=== PATIENT | male | born 1960 | race Caucasian/White ===

== ENCOUNTER 2022-09-15 09:38 | Outpatient (CLI) | payer OTHER, SELFPAY ==
[2022-09-15 10:18] LABS: Hemoglobin 12.4 g/dL (14.0-18.0); Mean Corpuscular HGB Conc 33.5 g/dl (32-36); Mean Corpuscular Volume 95.4 fl (80-100); Mean Platelet Volume 10.5 fl (7.4-10.4); Platelet Count Result 143 k/mm3 (150-375); Red Blood Count 3.88 M/mm3 (4.6-6.20); Red Cell Distribution Width 14.8 % (11.5-14.5); White Blood Count 6.2 K/mm3 (4.5-10.0)
[2022-09-15 10:35] LABS: Iron 67 ug/dL (49-181)
[2022-09-15 10:41] LABS: Alanine Aminotransferase 31 U/L (6-50); Albumin Level 3.8 g/dL (3.5-5.1); Alkaline Phosphatase 74 U/L (38-126); Anion Gap 4 mmol/L (8-16); Aspartate Amino Transferase 56 U/L (17-59); Bilirubin,Total 0.9 mg/dL (0.2-1.3); Blood Urea Nitrogen 23 mg/dL (9-20); Calcium 8.4 mg/dL (8.4-10.2); Carbon Dioxide 30 mmol/L (22-30); Chloride 98 mmol/L (98-107); Estimated Glomerular Filt Rate > 60; Glucose 81 mg/dL (65-110); Sodium 132 mmol/L (137-145)
[2022-09-15 10:46] LABS: Percent Iron Saturation 20 % (20-50)
[2022-09-15 11:08] LABS: Hepatitis B Surface Antigen Negative (Negative)
[2022-09-15 11:14] LABS: HAV RESULT Negative (Negative); Hepatitis B Core IgM Result Negative (Negative)
[2022-09-15 11:26] LABS: Hepatitis C Virus Antibody Negative (Negative)
[2022-09-19 07:01] LABS: Ceruloplasmin 26 mg/dL (18-36)
[2022-09-20 11:39] LABS: Mitochondrial (M2) Ab (IgG) <=20.0 U (<=20.0)
[2022-09-24 16:01] LABS: ALT 17 U/L (9-46); Alpha-2-Macroglobulin 121 mg/dL (106-279); Apolipoprotein A1 164 mg/dL (94-176); Fibrosis Score 0.07; Fibrosis Stage F0; GGT 7 U/L (3-70); Haptoglobin 124 mg/dL (43-212); Necroinflammat Act Grade A0; Total Bilirubin 0.6 mg/dL (0.2-1.2)
== END 2022-09-15 09:39 | disposition home or self-care (01) ==
LOC: ANHLAB 09:41
PROVIDERS: Visit Provider Internal Medicine Gastroenterology
DX: R74.8 Abnormal levels of other serum enzymes (principal); K74.60 Unspecified cirrhosis of liver; R18.8 Other ascites
CPT/HCPCS: 36415; 80053; 80074; 81596; 82104; 82390; 82728; 83520; 83540; 83550; 85027; 86038

== ENCOUNTER 2022-10-10 02:41 | Day surgery (SDC) | payer OTHER, SELFPAY ==
[2022-09-30 09:34] VITALS: BMI 20.3
--- NOTE | 2022-10-07 17:57 | WPDANESEPP ---
Anes - Eval Pre Procedure Procedure: Operation Date: 10/10/22 10:45 Proposed Procedures p Esophagogastroduodenoscopy & Screening Colonoscopy - Richard Gregory MD Date/Time: 10/07/22 17:57 Pre Op Diagnosis: cirrhosis,unspecified, neoplasm screening Patient Data Age: 62 Gender: M Height: 1.83 m Weight: 68 kg Allergies Allergy/AdvReac Type Severity Reaction Status Date / Time bacitracin Allergy Rash Verified 09/30/22 09:31 [From Neosporin ([id number])] neomycin Allergy Rash Verified 09/30/22 09:31 [From Neosporin ([id number])] polymyxin B Allergy Rash Verified 09/30/22 09:31 [From Neosporin ([id number])] Home Medications Medication Instructions Recorded Confirmed Type amlodipine 5 mg tablet 5 mg PO DAILY 09/15/22 09/30/22 History aspirin 81 mg tablet,delayed 81 mg PO DAILY 09/15/22 09/30/22 History release folic acid 1 mg tablet 1 mg PO DAILY 09/15/22 09/30/22 History furosemide 40 mg tablet 40 mg PO QAM 09/15/22 09/30/22 History levothyroxine 125 mcg capsule 125 mcg PO DAILY 09/15/22 09/30/22 History omeprazole 20 mg capsule,delayed 20 mg PO DAILY 09/15/22 09/30/22 History release spironolactone 100 mg tablet 100 mg PO QAM #30 tabs 09/15/22 09/30/22 Rx (Aldactone) Patient hx anesthesia problems: none Family hx anesthesia problems: none Results Review: All pre-operative results and documents have been reviewed as part of the pre-operative evaluation. [facility] Past Medical History Medical History (Updated 10/07/22 @ 17:58 by Gaby Lopez CRNA) Ascites Cirrhosis Colon cancer screening GERD (gastroesophageal reflux disease) High blood pressure History of throat cancer Hypothyroidism (acquired) Surgical History Surgical History (Updated 10/07/22 @ 17:58 by Gaby Lopez CRNA) History of radical neck surgery Social History Social History (Updated 09/15/22 @ 08:48 by Ernestina Simons CMA) Years smoked: 40 Smoking status: Former smoker Alcohol intake: former Alcohol use details: 2 cans of beer/day for 40 years. Quit drinking 08/2022 Substance use: never Spiritual care concerns: No Exam Day of Procedure 10/07/22 17:57
[2022-10-10 09:00] VITALS: BP 124/86; PULSE 67; RESP 18; TEMP 36.2; O2SAT 100; BMI 21.3
[2022-10-10] MEDS: LACTATED RINGERS 1,000 ML 150 ML IV CONT (09:37)
--- NOTE | 2022-10-10 10:00 | P.PNAN_ITS ---
Anes - Eval Final PreProcedure Day of Procedure 10/10/22 10:00 Patient weight: normal Heart: regular rate and rhythm Lungs: decreased breath sounds Airway: Mallampati scale class II Neurological: alert and oriented Last oral intake: >/= 8 hours ASA classification: IV Emergent: no Anesthetic plan: proceed Anesthesia type and monitoring: general GIVS and standard monitoring Results Review: All pre-operative results and documents have been reviewed as part of the pre- operative evaluation. Informed Consent: The patient's anesthetic plan and its attendant risks and benefits were discussed with the patient/family/POA. Questions were solicited and answers provided to the satisfaction of the patient/family/POA.
--- NOTE | 2022-10-10 10:19 | WPDHPUPDATE1 ---
History and Physical Update Update Date/Time: 10/10/22 10:19 History and Physical has been reviewed, including an updated exam of the patient. There are NO changes in the patient's condition. Risks, benefits, and alternatives have been discussed and questions answered. Patient agrees to proceed with procedure.
[2022-10-10 10:53] VITALS: BP 90/61; PULSE 67; RESP 15; O2SAT 100
--- NOTE | 2022-10-10 10:53 | SUR.OPER ---
EGD started at 1029 and ended at 1031. Colonoscopy started at 1037 and ended at 1046.
[2022-10-10 11:03] VITALS: BP 109/76; PULSE 64; RESP 17; O2SAT 100
[2022-10-10 11:13] VITALS: BP 119/81; PULSE 67; RESP 24; O2SAT 100
== END 2022-10-10 11:26 | disposition home or self-care (01) ==
PROVIDERS: Visit Provider Internal Medicine Gastroenterology
PROC: 0DJ08ZZ Inspection of Upper Intestinal Tract, Via Natural or Artificial Opening Endoscopic (ICD-10-PCS; CPT 43235; principal; 2022-10-10 10:45)
DX: Z12.11 Encounter for screening for malignant neoplasm of colon (principal); D12.3 Benign neoplasm of transverse colon; K64.8 Other hemorrhoids; K57.30 Diverticulosis of large intestine without perforation or abscess without bleeding; K29.70 Gastritis, unspecified, without bleeding; K74.60 Unspecified cirrhosis of liver; K21.9 Gastro-esophageal reflux disease without esophagitis; I10 Essential (primary) hypertension; E03.9 Hypothyroidism, unspecified; Z79.82 Long term (current) use of aspirin; Z87.891 Personal history of nicotine dependence; Z85.819 Personal history of malignant neoplasm of unspecified site of lip, oral cavity, and pharynx
CPT/HCPCS: 45385; 43239; 88305; J2704; J7120

== ENCOUNTER 2023-03-24 10:02 | Outpatient (CLI) | payer OTHER, SELFPAY ==
--- NOTE | ~2023-03-24 | US_ITS ---
Limited Abdominal Sonogram: Real-time sonographic imaging of the right upper quadrant was performed. Clinical History: Ascites Findings: The liver appears normal with no evidence of mass lesion or bile duct dilatation. Main por neil vein demonstrates normal direction of flow. The gallbladder is well distended, and appears normal with no evidence of gallstone or wall thickening. The common bile duct measures 2 mm. The visualize d pancreas, aorta, and IVC are unremarkable. Impression: No significant abnormality seen. No ascites. Reviewed, dictated and finalized at location . S OFFICE MANAGER Impression: No significant abnormality seen. No ascites.
== END 2023-03-24 10:03 | disposition home or self-care (01) ==
LOC: ANHIMG 10:04
PROVIDERS: Visit Provider Internal Medicine Gastroenterology
DX: R18.8 Other ascites (principal); K74.60 Unspecified cirrhosis of liver; K76.6 Portal hypertension
CPT/HCPCS: 76705

== ENCOUNTER 2023-05-29 10:30 | Outpatient (CLI) | payer MEDICARE, OTHER, SELFPAY ==
[2023-05-29 11:02] LABS: Hematocrit 34.1 % (42.0-52.0); Hemoglobin 11.4 g/dL (14.0-18.0); Immature Platelet Fraction Pct 7.6 % (0.9-11.2); Mean Corpuscular HGB Conc 33.4 g/dl (32-36); Mean Corpuscular Hemoglobin 30.9 pg (26-34); Mean Corpuscular Volume 92.4 fl (80-100); Mean Platelet Volume 10.7 fl (7.4-10.4); Platelet Count Result 131 k/mm3 (150-375); Red Blood Count 3.69 M/mm3 (4.6-6.20); Red Cell Distribution Width 13.7 % (11.5-14.5); White Blood Count 6.6 K/mm3 (4.5-10.0)
[2023-05-29 11:08] LABS: Alanine Aminotransferase 16 U/L (6-50); Albumin Level 4.4 g/dL (3.5-5.1); Alkaline Phosphatase 73 U/L (38-126); Anion Gap 6 mmol/L (8-16); Aspartate Amino Transferase 33 U/L (17-59); Bilirubin,Total 1.4 mg/dL (0.2-1.3); Blood Urea Nitrogen 21 mg/dL (9-20); Calcium 9.2 mg/dL (8.4-10.2); Carbon Dioxide 29 mmol/L (22-30); Chloride 97 mmol/L (98-107); Estimated Glomerular Filt Rate > 60; Glucose 98 mg/dL (65-110); Potassium 4.4 mmol/L (3.4-5.0); Sodium 132 mmol/L (137-145)
[2023-05-29 11:19] LABS: Prothrombin Time 13.4 Seconds (11.1-14.7)
== END 2023-05-29 10:31 | disposition home or self-care (01) ==
PROVIDERS: Visit Provider Internal Medicine Gastroenterology
DX: R18.8 Other ascites (principal); K74.60 Unspecified cirrhosis of liver; K76.6 Portal hypertension
CPT/HCPCS: 36415; 80053; 85027; 85055; 85610

== ENCOUNTER 2023-11-15 09:22 | Outpatient (CLI) | payer MEDICARE, OTHER, SELFPAY ==
[2023-11-15 09:54] LABS: Hematocrit 34.7 % (42.0-52.0); Hemoglobin 11.8 g/dL (14.0-18.0); Immature Platelet Fraction Pct 6.5 % (0.9-11.2); Mean Corpuscular Hemoglobin 31.7 pg (26-34); Mean Corpuscular Volume 93.3 fl (80-100); Mean Platelet Volume 10.4 fl (7.4-10.4); Platelet Count Result 146 k/mm3 (150-375); Red Blood Count 3.72 M/mm3 (4.6-6.20); Red Cell Distribution Width 14.2 % (11.5-14.5); White Blood Count 5.8 K/mm3 (4.5-10.0)
[2023-11-15 10:03] LABS: Alanine Aminotransferase 18 U/L (6-50); Albumin Level 4.6 g/dL (3.5-5.1); Alkaline Phosphatase 65 U/L (38-126); Anion Gap 9 mmol/L (4-12); Aspartate Amino Transferase 36 U/L (17-59); Blood Urea Nitrogen 25 mg/dL (9-20); Calcium 9.3 mg/dL (8.4-10.2); Carbon Dioxide 32 mmol/L (22-30); Chloride 88 mmol/L (98-107); Estimated Glomerular Filt Rate > 60; Glucose 85 mg/dL (65-110); Potassium 4.7 mmol/L (3.4-5.0); Sodium 129 mmol/L (137-145)
[2023-11-15 10:04] LABS: INR 0.9; Prothrombin Time 13.1 Seconds (11.1-14.7)
== END 2023-11-15 09:23 | disposition home or self-care (01) ==
PROVIDERS: PCP Nurse Practitioner Family; Visit Provider Internal Medicine Gastroenterology
DX: K74.60 Unspecified cirrhosis of liver (principal); R18.8 Other ascites; Z85.819 Personal history of malignant neoplasm of unspecified site of lip, oral cavity, and pharynx
CPT/HCPCS: 36415; 80053; 85027; 85055; 85610

== ENCOUNTER 2023-11-28 07:21 | Outpatient (CLI) | payer MEDICARE, OTHER, SELFPAY ==
--- NOTE | ~2023-11-28 | US_ITS ---
EXAMINATION: US right upper quadrant DATE: 11/28/2023 08:14 INDICATION: Other ascites. TECHNIQUE: Multiple grayscale and Doppler ultrasound images of the abdomen were obtained. COMPARISON: Abdomen ultrasound 03/24/2023 FINDINGS: The visualized portions of the head and body of the pancreas are normal. The liver is marianna l without focal lesion. There is normal flow in main portal vein. The gallbladder is normal in size. No gallstones or gallbladder wall thickening. There is no sonographic Yi's sign. The common duct is normal and measures 2 mm. There is a small volume of ascites. IMPRESSION: 1. Small volume of ascites. Reviewed, dictated and finalized at location A. IMPRESSION: 1. Small volume of ascites.
== END 2023-11-28 07:22 | disposition home or self-care (01) ==
PROVIDERS: PCP Nurse Practitioner Family; Visit Provider Internal Medicine Gastroenterology
DX: R18.8 Other ascites (principal); K74.60 Unspecified cirrhosis of liver
CPT/HCPCS: 76705

== ENCOUNTER 2023-12-26 13:52 | Outpatient (CLI) | payer MEDICARE, OTHER, SELFPAY ==
--- NOTE | ~2023-12-26 | XR_ITS ---
EXAMINATION: XR chest 2V DATE: 12/26/2023 15:51 INDICATION: Unilateral inguinal hernia without obstruction. TECHNIQUE: Frontal and lateral views of the chest were obtained. COMPARISON: None. FINDINGS: There is mild scarring at the lung apices. There is mild atelectasis at the lung bases. No pleural effusion or pneumothorax. The heart size is normal. IMPRESSION: 1. Mild scarring at the lung apices and mild atelectasis at the lung bases. Reviewed, dictated and finalized at location A.
--- NOTE | 2023-12-26 14:45 | ECG_ITS ---
Test Date: 2023-12-26 14:49:05 Measurements Intervals [place] Rate: 61 P: 45 [place]: 139 QRS: 3 QRSD: 106 T: 12 QT: 421 QTc: 425 Interpretive Statements SINUS RHYTHM EARLY PRECORDIAL R-WAVE TRANSITION BORDERLINE ECG No previous ECG available for comparison Electronically Signed On 12-27-2023 07:09:08 CDT by Aj Sanchez M.D.
[2023-12-26 15:18] LABS: Basophils Percent Auto 0.6 % (0.2-1.2); Eosinophils Percent Auto 0.6 % (0-4.4); Hematocrit 34.5 % (42.0-52.0); Hemoglobin 11.8 g/dL (14.0-18.0); Immature Granulocyte Absolute 0.03 K/mm3 (0.00-0.031); Immature Granulocyte Percent A 0.6 % (0-0.5); Immature Platelet Fraction Pct 6.2 % (0.9-11.2); Lymphocytes Absolute Auto 0.56 K/mm3 (0.9-3.2); Lymphocytes Percent Auto 10.9 % (18.3-44.2); Mean Corpuscular HGB Conc 34.2 g/dl (32-36); Mean Corpuscular Hemoglobin 31.8 pg (26-34); Mean Platelet Volume 10.7 fl (7.4-10.4); Monocytes Absolute Auto 0.4 K/mm3 (0.1-0.6); Monocytes Percent Auto 7.2 % (2.6-8.5); Neutrophils Absolute Auto 4.1 K/mm3 (1.3-6.7); Neutrophils Percent Auto 80.1 % (45.5-73.1); Platelet Count Result 139 k/mm3 (150-375); Red Blood Count 3.71 M/mm3 (4.6-6.20); Red Cell Distribution Width 13.9 % (11.5-14.5); White Blood Count 5.1 K/mm3 (4.5-10.0)
[2023-12-26 15:27] LABS: Prothrombin Time 13.3 Seconds (11.1-14.7)
[2023-12-26 15:28] LABS: Partial Thromboplastin Time 30.2 Seconds (22.3-36.8)
[2023-12-26 15:30] LABS: Anion Gap 7 mmol/L (4-12); Blood Urea Nitrogen 27 mg/dL (9-20); Carbon Dioxide 31 mmol/L (22-30); Chloride 91 mmol/L (98-107); Estimated Glomerular Filt Rate > 60; Glucose 94 mg/dL (65-110); Potassium 4.1 mmol/L (3.4-5.0); Sodium 129 mmol/L (137-145)
== END 2023-12-26 13:53 | disposition home or self-care (01) ==
LOC: ANHSURGERY 14:01
PROVIDERS: PCP Nurse Practitioner Family; Visit Provider Surgery
DX: K40.90 Unilateral inguinal hernia, without obstruction or gangrene, not specified as recurrent (principal); D69.6 Thrombocytopenia, unspecified; R94.31 Abnormal electrocardiogram [ECG] [EKG]; R91.8 Other nonspecific abnormal finding of lung field
CPT/HCPCS: 36415; 71046; 80048; 85025; 85055; 85610; 85730; 93005

== ENCOUNTER 2024-02-07 02:07 | Day surgery (SDC) | payer MEDICARE, OTHER, SELFPAY ==
[2023-12-26 15:12] VITALS: RESP 16; BMI 20.5
--- NOTE | 2023-12-26 15:30 | PC.NURSE ---
Report to the Outpatient Waiting Room, entrance under the green pavilion located off [facility], at time _07:30am__ on date _02/07/24 . Planned Procedure Time: ___09:30am . Time changes happen often and if your time is changed the preop area will call you the afternoon before. - You and your visitor will be asked to self-screen and do not enter if you have any COVID symptoms. Please call surgeon if you need to reschedule. - A mask is optional within the hospital at this time. Patients may have clear liquids (water, carbonated beverages, clear teas, apple juice) until 3 hours prior to surgery with a maximum of 20 ounces. - No food from midnight until time of surgery and no smoking (06:30am) Take only the following medications with a SIP of water on the morning of surgery: __Amlodipine and Levothyroxine DO NOT STOP ANY OF YOUR OTHER PRESCRIPTION MEDICATIONS PRIOR TO SURGERY EXCEPT THE FOLLOWING Medications to discontinue per physician ___Hold vitamins for 3 days prior to surgery per Anesthesia ____ Date to take last dose___02/03/24 Please no make-up, nail [place], hairspray, perfume, deodorant, or body powder the day of surgery.? No jewelry (including any body piercings) or valuables the day of surgery, leave them at home.? Please take a shower or bath the night before, or the morning of, surgery with an antibacterial soap.? Wear comfortable, loose fitting clothing.? - Jewelry must be removed prior to entering the operating room.? Rings and piercings that are not removed may be cut off. - The hospital will not accept responsibility for valuables.? - Please leave all valuables, including medications, at home the day of surgery. If you are going home after surgery, a licensed driver guard must drive you home.? - NO public transportation without another adult if you receive anesthesia. - We recommend that an adult stay with you for 24 hours following discharge. - We also recommend that you do not drive, make important decision, drink alcoholic beverages, or take any drugs that were not prescribed by your health care provider for at least 24 hours after your discharge time. Follow any additional instructions given to you from your surgeon. Telephone instructions given to ___patient ____and asked if any additional questions and then verbalized understanding. Patient advised to call surgeon office or pre surgery nurse liaison [phone] if any additional questions.
[2024-02-07] VITALS (9 sets, daily range): BP systolic 109–160; BP diastolic 74–86; PULSE 60–97; RESP 14–20; TEMP 36.2; O2SAT 98–100
[2024-02-07] MEDS: ACETAMINOPHEN 500 MG TABLET 1000 MG PO (08:08)
[2024-02-07] MEDS: LACTATED RINGERS 1,000 ML 30 ML IV CONT ×2 (08:10→12:09)
[2024-02-07] MEDS: KETOROLAC 15 MG/ML VIAL (*BKC) IV PUSH (08:12)
--- NOTE | 2024-02-07 08:20 | PM.SD2 ---
Same Day Admit/Disch: HPI History of Present Illness Chief complaint: Left Ing Hernia Narrative: Ranulfo Arboleda is a 63 year old male who was known to have cirrhosis, ascites, and portal hypertension. He presented with a symptomatic reducible left inguinal hernia. After discussion, he is taken to surgery now for robotic laparoscopic repair. [facility] Past Medical History Medical History Adenomatous colon polyp Ascites Cirrhosis Colon cancer screening GERD (gastroesophageal reflux disease) High blood pressure History of throat cancer Hypothyroidism (acquired) Left inguinal hernia Portal hypertension Thrombocytopenia Surgical History Surgical History History of radical neck surgery Hx of right inguinal hernia repair Family History Family History Other Cerebrovascular accident Skin cancer Social History Social History Smoking packs per day: 1 Smoking cigarettes per day: 20.0 Years smoked: 40 Smoking pack-years: 40.00 Smoking status: Former smoker Smoking end date: 03/20/01 Alcohol intake: former Alcohol use details: 2 cans of beer/day for 40 years. Quit drinking 08/2022 Substance use: never Do You Feel Safe in your Home?: Yes Lack of Transportation: No Lack of Food: Never True Current Housing: I Have Housing Concerned About Future Housing: No Difficulty Paying Gas/Electric Bills: No Difficulty Paying for Meds: No Currently Unemployed: No Education: Bachelor's Degree Difficulty w/ Childcare or Family Care: No Living arrangements: alone Spiritual care concerns: No Same Day Admit/Disch: Med Pre-admit Medications Home Medications Medication Instructions Recorded Confirmed Type folic acid 1 mg tablet 1 mg PO DAILY 09/15/22 02/07/24 History levothyroxine 125 mcg capsule 125 mcg PO DAILY 09/15/22 02/07/24 History omeprazole 20 mg capsule,delayed 40 mg PO DAILY #60 caps 11/30/23 02/07/24 Rx release spironolactone 100 mg tablet 150 mg PO QAM 1 month #45 tabs 11/30/23 02/07/24 Rx (Aldactone) ibuprofen 600 mg tablet 600 mg PO Q6H PRN pain #14 tabs 02/07/24 Rx oxycodone-acetaminophen 5 mg-325 0.5 - 1 tablet PO Q6H PRN pain #10 02/07/24 Rx mg tablet tabs Review of Systems Review of Systems All systems reviewed & are unremarkable except as noted in HPI and below (HPI) Exam Const: General: comfortable, no acute distress, alert and awake HENMT: Head: normocephalic and atraumatic Mouth: Yes Normal oral and palatal mucosa present Eyes: Conjunctivae: conjunctivae normal Pupils: Equal, round and reactive pupils present EOM: EOMs intact bilaterally Neck: Neck: normal visual inspection, no lymphadenopathy and nontender Resp: Effort & Inspection: normal respiratory effort Auscultation: clear to auscultation bilaterally Cardio: Rate: regular rate Rhythm: regular rhythm Heart sounds: no gallops, no murmurs and no rubs GI: Inspection: non-distended GI Palp: Yes Soft to palpation, No Tenderness to palpation present (GI), No Hepatomegaly present and No Splenomegaly present : Male General Exam: Yes hernia (Reducible left inguinal hernia) Penis: Yes normal penis Scrotum: scrotum normal Testes: Testes normal Skin: Lesions: no lesions Rashes: no rashes Neuro: General: no focal motor deficits and CN's II-XI intact bilaterally Cranial nerves: Yes Equal, round and reactive pupils present, Yes Bilaterally intact EOM present, Yes facial symmetry and Yes Midline tongue present Speech: normal speech Motor exam (neuro): 5/5 motor strength present throughout and Motor abnormalities not present Extrem: General: no clubbing, cyanosis or edema and edema Psych: Affect: normal affect Thought process: Normal thought process present Insight: Good insight present (Psych) DS: Data Data Completed and Pending Labs on day of discharge: Labs from last 24 hours 02/07/24 07:59 Sodium Pending DS: Summary Time Spent with Patient Time attestation: Total time spent providing and/or coordinating discharge services: DS: Admitting Diagnosis Discharge Date 02/07/2024 Admitting Diagnosis Reducible left inguinal hernia-plan to proceed with robotic laparoscopic repair with mesh. The procedure, risks, benefits, alternatives have been discussed. All questions were answered. He understands and agrees to go ahead. Cirrhosis with ascites, portal hypertension-increases surgical risks DS: Discharge Diagnosis Discharge Diagnosis (1) Inguinal hernia without obstruction or gangrene: Qualifiers: Laterality: unilateral Recurrence: non-recurrent Qualified Code(s): K40.90 - Unilateral inguinal hernia, without obstruction or gangrene, not specified as recurrent Code(s): K40.90 - Unilateral inguinal hernia, without obstruction or gangrene, not specified as recurrent Status: Chronic Assessment and Plan: Robotic laparoscopic repair performed 02/07/[address] Adams (2) Cirrhosis: Qualifiers: Hepatic cirrhosis type: unspecified hepatic cirrhosis Ascites presence: with ascites Qualified Code(s): K74.60 - Unspecified cirrhosis of liver; R18.8 - Other ascites Code(s): K74.60 - Unspecified cirrhosis of liver Status: Chronic (3) Ascites: Qualifiers: Ascites type: other type Qualified Code(s): R18.8 - Other ascites Code(s): R18.8 - Other ascites Status: Chronic (4) Portal hypertension: Code(s): K76.6 - Portal hypertension Status: Chronic (5) History of oropharyngeal cancer: Code(s): Z85.819 - Personal history of malignant neoplasm of unspecified site of lip, oral cavity, and pharynx Status: Chronic (6) Thrombocytopenia: Code(s): D69.6 - Thrombocytopenia, unspecified Status: Chronic Discharge Plan Discharge Patient Disposition: Home, Self-Care Discharge Instructions: 1. May shower the day after surgery over incisions. 2. Call office for: -Wound increasingly painful or bleeding -Vomiting -Fever of greater than 101 degrees 3. Wear scrotal support except when sleeping or bathing for 1 week 4. If no bowel movement for three days, take 1 oz. (30 ml) Milk of Magnesia, if no results, take Fleets enema. 5. No heavy lifting > 15-20 pounds for 2 weeks. 6. No driving for 3 days or while taking narcotic pain medications. 7. Up walking 10-30 minutes three times per day. 8. Resume previous home medications. 9. Follow-up 10-14 days in office for wound check or as previously scheduled. 10. Oral pain medications prescription to be sent home with patient. 11. NUTRITION: Start out by drinking fluids and increase your diet as tolerated. If you experience nausea, try dry toast, crackers, and 7-UP. If nausea or vomiting persists, contact your surgeon?s office. Stand Alone Forms: General Discharge Instructions Follow-up/Referrals: Frank Adasm MD [Physician] - 2 Weeks Discharge Medications: New oxycodone-acetaminophen 5-325 mg tablet 0.5 - 1 tablet PO Q6H PRN (Reason: pain) Qty: 10 0RF ibuprofen 600 mg tablet 600 mg PO Q6H PRN (Reason: pain) Qty: 14 0RF Continued levothyroxine 125 mcg capsule 125 mcg PO DAILY folic acid 1 mg tablet 1 mg PO DAILY omeprazole 20 mg capsule,delayed release(DR/EC) 40 mg PO DAILY Qty: 60 11RF spironolactone [Aldactone] 100 mg tablet 150 mg PO QAM 30 Days Qty: 45 11RF
--- NOTE | 2024-02-07 08:23 | WPDHPUPDATE1 ---
History and Physical Update Update Date/Time: 02/07/24 08:23 History and Physical has been reviewed, including an updated exam of the patient. There are NO changes in the patient's condition. Risks, benefits, and alternatives have been discussed and questions answered. Patient agrees to proceed with procedure.
[2024-02-07 08:24] LABS: Sodium 130 mmol/L (137-145)
--- NOTE | 2024-02-07 08:59 | WPDANESEPPF ---
Anes - Initial Pre Proc Eval Procedure: Operation Date: 02/07/24 09:30 Proposed Procedures p Robotic Laparoscopic Repair Left Inguinal Hernia with Mesh - Frank Adams MD Date/Time: 02/07/24 08:59 Surgeon: Frank Adams MD Pre Op Diagnosis: Left Ing Hernia Patient Data Age: 63 Gender: M Height: 1.8 m Weight: 66.8 kg Last Vital Signs Resp 16 12/26/23 15:12 O2 Del Method Room Air 12/26/23 15:12 Allergies Allergy/AdvReac Type Severity Reaction Status Date / Time bacitracin Allergy Intermediate Rash Verified 02/07/24 07:51 [From Neosporin ([id number])] neomycin Allergy Intermediate Rash Verified 02/07/24 07:51 [From Neosporin ([id number])] polymyxin B Allergy Intermediate Rash Verified 02/07/24 07:51 [From Neosporin ([id number])] Home Medications Medication Instructions Recorded Confirmed Type folic acid 1 mg tablet 1 mg PO DAILY 09/15/22 02/07/24 History levothyroxine 125 mcg capsule 125 mcg PO DAILY 09/15/22 02/07/24 History omeprazole 20 mg capsule,delayed 40 mg PO DAILY #60 caps 11/30/23 02/07/24 Rx release spironolactone 100 mg tablet 150 mg PO QAM 1 month #45 tabs 11/30/23 02/07/24 Rx (Aldactone) Laboratory Tests 02/07/24 07:59 Sodium 130 L mmol/L (137-145) Blood Type Pending Antibody Screen Pending Patient hx anesthesia problems: none Family hx anesthesia problems: none Results Review: All pre-operative results and documents have been reviewed as part of the pre-operative evaluation. [facility] Past Medical History Medical History Adenomatous colon polyp Ascites Cirrhosis Colon cancer screening GERD (gastroesophageal reflux disease) High blood pressure History of throat cancer Hypothyroidism (acquired) Left inguinal hernia Portal hypertension Thrombocytopenia Surgical History Surgical History History of radical neck surgery Hx of right inguinal hernia repair Family History Family History Other Cerebrovascular accident Skin cancer Social History Social History Smoking packs per day: 1 Smoking cigarettes per day: 20.0 Years smoked: 40 Smoking pack-years: 40.00 Smoking status: Former smoker Smoking end date: 03/20/01 Alcohol intake: former Alcohol use details: 2 cans of beer/day for 40 years. Quit drinking 08/2022 Substance use: never Do You Feel Safe in your Home?: Yes Lack of Transportation: No Lack of Food: Never True Current Housing: I Have Housing Concerned About Future Housing: No Difficulty Paying Gas/Electric Bills: No Difficulty Paying for Meds: No Currently Unemployed: No Education: Bachelor's Degree Difficulty w/ Childcare or Family Care: No Living arrangements: alone Spiritual care concerns: No Anes - Eval Final PreProcedure Day of Procedure 02/07/24 08:59 Patient weight: normal and cachectic Heart: regular rate and rhythm Lungs: clear to auscultation Airway: Mallampati scale class II and special considerations (Changes from prev ca of head and neck noted. Scar to L ant neck from neck dissection. ) Neurological: alert and oriented Last oral intake: >/= 8 hours ASA classification: IV Emergent: no Anesthetic plan: proceed Anesthesia type and monitoring: general ETT and standard monitoring Results Review: All pre-operative results and documents have been reviewed as part of the pre-operative evaluation. Full discussion and eval in preop [address] Adams, pt and Luana daughter. Will proceed w specific attention to airway history and use video laryngoscope for airway mgt. Discussed if there is any difficulty or unable to intubated, would likely awaken pt and proceed in the future. Pt and his daughter understand plan and wish to proceed. Informed Consent: The patient's anesthetic plan and its attendant risks and benefits were discussed with the patient/family/POA. Questions were solicited and answers provided to the satisfaction of the patient/family/POA.
[2024-02-07] MEDS: ceFAZolin 2 GM/D5W 50 ML 2 GM/50 ML BAG IVPB (09:49)
[2024-02-07] MEDS: BUPIVACAINE/EPINEPHRINE 0.5% 50 ML VIAL 30 ML INFILTRATE (10:50)
--- NOTE | 2024-02-07 12:20 | P.OP_ITS ---
Procedure Note - Detailed Date of Procedure 02/07/24 Pre-op Diagnosis Left Ing Hernia Post-op Diagnosis Same Procedure Performed Robotic laparoscopic repair left inguinal hernia with mesh Surgeon Frank Adams MD [employer] LOAN ASSISTANT Anesthesia General and Local Indications Patient has had a painful large left inguinal bulge. His exam showed a hernia. He is taken to surgery now for robotic laparoscopic repair Findings This was a large inguinal indirect hernia Description of Procedure Patient was taken to surgery and induced into general anesthesia. The abdomen and groin areas were prepped and draped. Robotic instruments were placed in the usual fashion starting with a 5 mm applied Medical optical trocar in the left upper quadrant and then transitioning to the robotic instruments. The robot was then brought into the field and the camera was docked. The camera was targeted. We then docked the instrument arms and position the instruments appropriately. Surgeon went to the robotic console. A transversely oriented anterior flap was created across the inguinal canal structures. The flap was then dissected broadly and progressive dissection in a posterior dimension was carried out. Medially, we dissected just under the rectus muscle down to Jay's ligament. We dissected medially and the pubis was noted. We also dissected the peritoneum off the medial aspect of the right rectus muscle. Traction was then placed on the peritoneum going to the indirect space. Slowly and carefully, using cautery we dissected the peritoneum and then the chronic and thickened hernia sac. We mostly did this dissection in the anterior aspect dividing the transversalis sling. Some retraction of the sac allowed us to carefully dissect vas deferens cord structures from their attachments to the hernia sac. The sac ended up being quite large this dissection was lengthy. Eventually however, the into the sac was found was carefully dissected away from the cord structures. There was more bleeding than usual although no significant bleeding. Patient does have portal hypertension and has mild thrombocytopenia, this may have been the reason. Regardless, the peritoneum was then carefully dissected further posterior so that it would not creep up under the mesh. An extra-large, 17 x 12 cm left mid 3D max mesh was brought the abdomen. It was positioned nerissa ropriately in the inguinal space. It was sutured to Jay's ligament with 3-0 Vicryl. Two other 3-0 Vicryl was reused to secure it anteriorly. One of these sutures was medial to the inferior epigastric vessels, the other was lateral. I again checked to ensure that the hernia sac and the peritoneum was well away from the posterior aspect of the mesh. All looked good. I then closed the peritoneum with running 3-0 V lock suture. We then removed the 2 needles from suturing. The repair looked good. We evacuated CO2 and removed the instruments and the robot was undocked. The trocars were removed and the wounds were closed with subcuticular 4-0 Monocryl skin suture. The wounds were dressed with Exofin surgical adhesive. Patient was awakened and taken to recovery in good condition. Sponge and needle counts were correct x2. Implants Extra-large, 17 x 12 cm mid left 3DMax mesh Estimated Blood Loss -30 Drains No Packing No Pathology None sent Complications None Condition Stable Disposition PACU [facility] Billing Surgery - Charge Forward: Surgery Billing (Robotic laparoscopic repair left inguinal hernia with mesh)
== END 2024-02-07 14:45 | disposition home or self-care (01) ==
PROVIDERS: Anesthesiology; PCP Nurse Practitioner Family; Visit Provider Surgery
PROC: 8E0Y4CZ Robotic Assisted Procedure of Lower Extremity, Percutaneous Endoscopic Approach (ICD-10-PCS; CPT 49650; principal; 2024-02-07 09:30)
DX: K40.90 Unilateral inguinal hernia, without obstruction or gangrene, not specified as recurrent (principal); K74.60 Unspecified cirrhosis of liver; R18.8 Other ascites; K76.6 Portal hypertension; K21.9 Gastro-esophageal reflux disease without esophagitis; E03.9 Hypothyroidism, unspecified; I10 Essential (primary) hypertension; D69.6 Thrombocytopenia, unspecified; Z85.819 Personal history of malignant neoplasm of unspecified site of lip, oral cavity, and pharynx; Z87.891 Personal history of nicotine dependence
CPT/HCPCS: 49650; S2900; 36415; 84295; 86850; 86900; 86901; A9270; C1781; J0690; J1100; J1885; J2003; J2250; J2371; J2704; J3010; J7030; J7120

== ENCOUNTER 2024-05-30 06:36 | Outpatient (CLI) | payer MEDICARE, OTHER, SELFPAY ==
--- NOTE | ~2024-05-30 | US_ITS ---
Limited Abdominal Sonogram: Real-time sonographic imaging of the right upper quadrant was performed. Clinical History: Cirrhosis Findings: The liver appears normal and echotexture, with no evidence of mass lesion or bile duct dil atation. Liver measures 19.9 cm in length. Main portal vein demonstrates normal direction of flow. Th e gallbladder is well distended, and appears normal with no evidence of gallstone or wall thickening. The common bile duct measures 2 mm. The visualized pancreas, aorta, and IVC are unremarkable. Small amount of upper abdominal ascites noted. Impression: Small amount of upper abdominal ascites. Hepatomegaly Reviewed, dictated and finalized at location . Impression: Small amount of upper abdominal ascites. Hepatomegaly
--- OUTSIDE RECORDS SUMMARY | 2024-05-30 06:41 | XMS_ITS | Patient Health Summary ---
Author Organization [facility] Address [address] [facility] [place] [address] Care Team Providers Care Tiger Machine Operator Name Role Phone Unavailable Primary Care Provider Unavailabl e Note from [facility],non-owned Affiliates and Associated Physician Practices is amultiple site organization consisting of ambulatory clinics and hospital sitesin [place], [place], [place] and [place]. This disclosure is being madepursuant to the Care Everywhere program and may not contain all information available regarding this patient. Last updated 17.[facility] Social History Tobacco Use Types Packs/Day Years Used Date Smoking Tobacco: Never Assessed Sex and Gender Information Value Date Recorded Sex Assigned at Not on file Gender Identity Not on file Sexual Orientation Not on file Procedures * DERMATOPATHOLOGY(Performed 07/04/2023) Performed for Neoplasm of uncertain behavior of skin Results * DERMATOPATHOLOGY (07/04/2023 12:00 AM CDT) Case Report Dermatopathology Report Case: [id number] Authorizing Provider: Mariam Khoury MD Collected: 07/04/2023 12:00 AM Ordering Location: [facility] - Received: 07/07/2023 06:45 AM DermPath Lab Pathologist: Olga Whitmore MD Specimen: Skin, left buccal cheek 4:50 PM CDT DERMATOPATHOLOGY LABORATORY Final Diagnosis Specimen A. SKIN, left buccal cheek: BASAL CELL CARCINOMA, NODULAR TYPE (C44.319) 4:50 PM CDT DERMATOPATHOLOGY LABORATORY Clinical History Neoplasm of Uncertain behavior vs Squamous Vanessa Carcinoma vs Basal Cell Carcinoma 4:50 PM CDT DERMATOPATHOLOGY LABORATORY Gross Description Specimen A: Received is one formalin filled container labeled with the patient's name and designated left buccal cheek. The specimen consists of a shave biopsy measuring 9x8x1 mm. Jar 0. 4 4:50 PM CDT DERMATOPATHOLOGY LABORATORY Microscopic Description Specimen A. SKIN, left buccal cheek: Within the dermis there are aggregates of basaloid cells with a high nuclear to cytoplasmic ratio and peripheral palisading. 4 4:50 PM CDT DERMATOPATHOLOGY LABORATORY Disclaimer An external and internal positive and negative controls are appropriate for the histochemical, immunohistochemical and immunofluorescence stain(s) in this case (if any), except where stated explicitly. The performance characteristics of the stain(s) cited in this report were developed and its performance characteristic determined by the Dermatopathology Laboratory at [facility], directed by Dr. Luis M Pressley. These tests need not be, and therefore are not, approved by the [place] Food and Drug Administration. The tests are used for clinical purposes. Billing Codes Specimen Charges Stain Charges 98425 1 4 4:50 PM CDT DERMATOPATHOLOGY LABORATORY Embedded Images 4 4:50 PM CDT DERMATOPATHOLOGY LABORATORY Pathology/Cytolog y TISSUE SPECIMEN FROM SKIN / Unknown 07/04/2023 07/07/2023 6:45 AM CDT Mariam Khoury MD LAB - PATHOLOGY/CYTO LOGY ORDERABLES DERMATOPATHOLOGY LABORATORY [facility] - Department of Dermatology [address], [address] Floor [address] [phone]
--- OUTSIDE RECORDS SUMMARY | 2024-05-30 06:41 | XMS_ITS | Encounter Summary ---
Author Organization [facility] Address [address] [place] [address] Care Team Providers Care Seismic Prospecting Observer Name Role Phone Wili Maciasory [facility] Primary Care Provider + Krytsle Devine [facility] Primary Care Provider + Encounter Details Date Type Department Care Team (Late st Contact Info) Description 10/05/2022 ConteXtream Message Enc [facility] Family & Internal Medicine [facility] [address] [place] [address] [facility] Provider Appointment Social History Tobacco Use Types Packs/Day Years Used Date Smoking Tobacco: Former Cigarettes Q uit: 11/12/1999 Passive Smoke Exposure: Past Smokeless Tobacco: Never Alcohol Use Standard Drinks/Week Comments Not Currently 16.7 (1 standard drink = 0.6 oz pure alcohol) one per night Humiliation, Afraid, Rape, and Kick questionnair e Answer Date Recorded Within the last year, have y ou been afraid of your partner or ex-partner? No 04/19/2022 Within the last year, have y ou been humiliated or emotionally abused in other ways by your partner or ex-partner? No Within the last year, have y ou been kicked, hit, slapped, or otherwise physically hurt by your partner or ex-partner? No 04/19/2022 Within the last year, have y ou been raped or forced to have any kind of sexual activity by your partner or ex-partner? No 04/19/2022 Overall Financial Resource Strain (CARDIA) Answe r Date Recorded How hard is it for you to pa y for the very basics like food, housing, medical care, and heating? Not hard at all 04/19/2022 PHQ-2 Answer Date Recorded Patient Health Questionnaire-2 Score 0 04/28/2022 Hunger Vital Sign Answer Date Recorded Within the past 12 months, y ou worried that your food would run out before you got the money to buy more. Never true 04/19/19 23 Within the past 12 months, t he food you bought just didn't last and you didn't have money to get more. Never true 04/19/2022 PRAPARE - Transportation Answer Date Re corded In the past 12 months, has l ack of transportation kept you from medical appointments or from getting medications? No 03/22 In the past 12 months, has l ack of transportation kept you from meetings, work, or from getting things needed for daily living? No 04/19/2022 Housing Stability Vital Sign Answer Chito e Recorded In the last 12 months, was t here a time when you were not able to pay the mortgage or rent on time? No 04/19/2022 In the last 12 months, how many places have you lived? 1 04/19/2022 In the last 12 months, was t here a time when you did not have a steady place to sleep or slept in a usp (including now)? No 04/19/2022 Education Answer Date Recorded What is the highest level of school you have completed or the highest degree you have received? 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 Answer Date of Assessment Author Status No 04/19/2022 2:00 PM FOREIGN LANGUAGE TEACHER Activ e * Do you have serious difficulty walking or climbing stairs? Answer Date of Assessment Author Status No 04/19/2022 2:00 PM Toyin Lemon RN Active * Do you have difficulty dressing or bathing? Answer Date of Assessment Author Status No 04/19/2022 2:00 PM Toyin Lemon RN Active * Because of a physical, mental, or emotional condition, do you have difficulty doing errands alone such as visiting a doctor's office or shopping? Answer Date of Assessment Author Status No 04/19/2022 2:00 PM Toyin Lemon RN Active documented as of this encounter Mental Status * Because of a physical, mental, or emotional condition, do you have serious difficulty concentrating, remembering, or making decisions? Answer Entry Date Author Status No 04/19/2022 2:00 PM Toyin Lemon RN Active documented in this encounter Plan of Treatment Upcoming Encounters Date Type Department Care Team (Late st Contact Info) Description 08/01/2024 8:00 AM CDT Office Visit [facility] Family & Internal Medicine [facility] [address] [place] [address] Krystle Devine [facility] [address] [facility], [address] [address] documented as of this encounter Visit Diagnoses Not on filedocumented in this encounter Care Teams Seismic Prospecting Observer Relationship Specialty Start Date End Date [facility] P[facility] - General Nurse Practitioner Family 11/12/1910/20 Krystle Devine [facility] [address] [facility], [address] [place] [address] PCP - General Nurse Practitioner Family 10/21/22 documented as of this encounter
--- OUTSIDE RECORDS SUMMARY | 2024-05-30 06:41 | XMS_ITS ---
Author Organization [facility] Address [address] [place] [address] Care Team Providers Care Coronary Care Unit Nurse Name Role Phone Nilson, Krystle Joe [facility] Primary Care Provider + Active Problems Problem Noted Date Diagnosed Date Non-recurrent unilateral ing uinal hernia without obstruction or gangrene 11/17/2023 Cirrhosis of liver with asci kay, unspecified hepatic cirrhosis type ([facility]) 03/07/2023 Ascites of liver 12/12/2022 Hyponatremia 04/19/2022 DDD (degenerative disc disease), cervical 2019 Acquired hypothyroidism 09/15/2017 Adverse effect of radiation 01/27/2017 Fatigue 01/27/2017 Asymptomatic varicose veins of lower extremity 0 11/13/2015 Inguinal hernia, right 11/13/2015 Kyphosis 11/13/2015 Male erectile disorder of organic origin 014 Vitamin B12 deficiency 12/20/2013 Memory loss 12/17/2013 Weight loss, unintentional 12/17/2013 Current Oncology Plans No current plan information found. Past Plans Radiation Treatments * No radiation treatments are documented for this patient in [facility]. Treatments may have been administered in another system. 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
--- OUTSIDE RECORDS SUMMARY | 2024-05-30 06:41 | XMS_ITS | Encounter Summary ---
Author Organization [facility] Address [address] [place] [address] Phone Care Team Providers Care Silver Plater Name Role Phone Pao Macias APRN, BINDER CASER Primary Care Provide r Mehdi Lewis MD Unavailable Reason for Visit * Reason Comments Medication Refill Encounter Details Date Type Department Care Team (Late st Contact Info) Description 03/05/2023 Refill [facility] [address] [address] Mehdi Lewis MD [address] [place] [phone] Medication Refill Social History Tobacco Use Types Packs/Day Years Used Date Smoking Tobacco: Former Cigarettes Q uit: 2001 Smokeless Tobacco: Never Alcohol Use Standard Drinks/Week Comments Yes 1 (1 standard drink = 0.6 oz pur e alcohol) per day Sex and Gender Information Value Date Recorded Sex Assigned at Not on file Legal Sex Male 2:01 PM CDT Gender Identity Not on file Sexual Orientation Not on file documented as of this encounter Miscellaneous Notes * Telephone Encounter - Thu Mendoza RN - 03/06/2023 7:53 AM CST Refill request from pharmacy. Please fill if appropriate. Follow up appointment as needed PROCESSOR documented in this encounter Plan of Treatment Not on file documented as of this encounter Visit Diagnoses Diagnosis Cirrhosis of liver with ascites, unspecified hepatic cirrhosis type (HCC) documented in this encounter Care Teams Silver Plater Relationship Specialty Start Date End Date Pao Macias APRN, BINDER CASER [address] [place] [address] PCP - General Advanced Practice Nurse 07/15/22 Mehdi Lewis MD [address] [place] [address] Consulting Physician Oncology 08/28/23 documented as of this encounter
--- OUTSIDE RECORDS SUMMARY | 2024-05-30 06:41 | XMS_ITS | Referral Summary ---
Author Organization [facility] Address [address] [place] [address] Care Team Providers Care Pot Puncher Name Role Phone Unavailable Primary Care Provider Unavailabl e Source Comments [facility],non-owned Affiliates and Associated Physician Practices is amultiple site organization consisting of ambulatory clinics and hospital sitesin [place], [place] and [place]. This disclosure is being madepursuant to the Care Everywhere program and may not contain all information available regarding this patient. Last updated 17.[facility] [employer] Social History Tobacco Use Types Packs/Day Years Used Date Smoking Tobacco: Never Assessed Sex and Gender Information Value Date Recorded Sex Assigned at Not on file Gender Identity Not on file Sexual Orientation Not on file Plan of Treatment Not on file
--- OUTSIDE RECORDS SUMMARY | 2024-05-30 06:41 | XMS_ITS | Encounter Summary ---
Author Organization [facility] Address [address] [place] [address] Care Team Providers Care Clay Caster Name Role Phone Krystle Devine [facility] Primary Care Provider + Encounter Details Date Type Department Care Team (Late st Contact Info) Description 02/20/2023 [place] Message [facility] Patient Accounts [address] [place] [address] [facility] Provider Action required Social History Tobacco Use Types Packs/Day Years [...] No 04/19/2022 Overall Financial Resource Strain (CARDIA) Claudia chacon Date Recorded How hard is it for [...] place to sleep or slept in a senior living (including now)? No 04/19/2022 Education Answer Date [...] Assessment Author Status No 04/19/2022 2:00 PM MANAGER MARKET Activ e * RETIRED Are you blind or do you have serious difficulty seeing, even when wearing glasses? Answer Date of Assessment Author Status No 04/19/2022 2:00 PM MANAGER MARKET Activ e * Do you have serious [...] Description 08/01/2024 8:00 AM CDT Office Visit [facility] Medical Group Family & Internal Medicine [address] [address] Krystle Devine FNP-BC [id number] [place] [address] documented as of this encounter Visit Diagnoses Not on filedocumented in this encounter Care Teams Clay Caster Relationship Specialty Start Date End Date Krystle Devine FNP-BC [id number] [place] [address], [address] [address] PCP - General Nurse Practitioner Family 10/21/22 documented as of this encounter
--- OUTSIDE RECORDS SUMMARY | 2024-05-30 06:41 | XMS_ITS | Referral Summary ---
Author Organization [facility] Address [facility] [place] [address] Care Team Providers Care Employee Operations Examiner Name Role Phone Krystle Devine GEAR SETTER Primary Care Provider [phone] Luz Marina Mcnamara Unavailable Allergies Active Allergy Reactions Criticality Noted Date Comments Neosporin (Neomycin-Polymyx) Unknown 006 Medications omeprazole (PriLOSEC) 20 mg capsule Take 1 capsule (20 mg total) by mouth daily 90 capsule 3 0 Active tamsulosin (FLOMAX) 0.4 mg extended release capsule 3 Active spironolactone (ALDACTONE) 100 mg tablet TAKE 1 & 1/2 TABLETS BY MOUTH EVERY MORNING Active furosemide (LASIX) 40 mg tablet Take 1 tablet (40 mg total) by mouth daily 3 Active amLODIPine (NORVASC) 5 mg tablet 3 Active folic acid (FOLVITE) 1 mg tablet Take 1 tablet (1,000 mcg total) by mouth daily Active albumin 25 % bottle Indications: Distended Abdomen Patient may receive medication per IV infusion after every paracentesis if more than 5 L are removed. 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 Gender Identity Not on file Sexual Orientation Not on file Last Filed Vital Signs Vital Sign Reading Time Taken Comments Blood Pressure 127/86 08/06/2014 2:40 PM CDT Pulse - - Temperature - - Respiratory Rate - - Oxygen Saturation - - Inhaled Oxygen Concentration - - Weight 66.5 kg (146 lb 9.6 oz) 01/08/2024 10:54 AM CDT Height 175.3 cm (5' 9 ) 06/07/2023 10:16 AM CDT Body Mass Index 21.65 06/07/2023 10:16 AM CDT Plan of Treatment Not on file Insurance MEDICARE [facility] CIGNA OPEN ACCESS [employer] OPEN ACCESS MEDICARE [facility] Care Teams Employee Operations Examiner Relationship Specialty [place] [address] [address], [address] [place] [address] PCP - General Family Medicine 11/17/23 Luz Marina Mcnamara PA [address] [facility] DEPT OTOLARYNGOLOGY, [place] [address] Physician Senior Loss Control Specialist Physician Senior Loss Control Specialist 01/26/24
--- OUTSIDE RECORDS SUMMARY | 2024-05-30 06:41 | XMS_ITS | Clinical Summary ---
Author Organization [facility] Address [facility] [place] [address] Care Team Providers Care Dining Room Supervisor Name Role Phone Krystle Devine SHUTDOWN PLANNER Primary Care Provider [phone]- [phone] Luz Marina Mcnamara Unavailable [phone] Allergies Active Allergy Reactions Criticality Noted Date [...] Trivalent, IM (MDV) 11/17/2012 Influenza, Unspecified 12/27/2019 Surgical History Surgery Date Site/Laterality Comments TONSILLECTOMY Left SELECTIVE NECK DISSECTION Left US GUIDED THORACENTESIS 02/13/2023 N/A US GUIDED THORACENTESIS 02/06/2023 N/A US GUIDED THORACENTESIS 01/30/2023 N/A US GUIDED THORACENTESIS 01/23/2023 N/A US GUIDED THORACENTESIS 01/16/2023 N/A US GUIDED THORACENTESIS 01/09/2023 N/A US GUIDED THORACENTESIS 01/02/2023 N/A US GUIDED THORACENTESIS 12/26/2022 N/A US GUIDED THORACENTESIS 12/19/2022 N/A US GUIDED THORACENTESIS 12/12/2022 N/A US GUIDED THORACENTESIS 11/30/2022 N/A US GUIDED THORACENTESIS 11/23/2022 N/A US GUIDED THORACENTESIS 11/16/2022 N/A US GUIDED THORACENTESIS 11/07/2022 N/A US GUIDED THORACENTESIS 10/28/2022 N/A US GUIDED THORACENTESIS 10/17/2022 N/A US GUIDED THORACENTESIS 09/28/2022 N/A US GUIDED THORACENTESIS 09/19/2022 N/A US GUIDED THORACENTESIS 09/12/2022 N/A US GUIDED THORACENTESIS 09/05/2022 N/A US GUIDED THORACENTESIS 08/26/2022 N/A US GUIDED THORACENTESIS 08/17/2022 N/A US GUIDED THORACENTESIS 08/08/2022 N/A US GUIDED THORACENTESIS 07/29/2022 N/A US GUIDED THORACENTESIS 07/22/2022 N/A US GUIDED THORACENTESIS 07/15/2022 N/A US GUIDED THORACENTESIS 07/08/2022 N/A US GUIDED THORACENTESIS 07/01/2022 N/A US GUIDED THORACENTESIS 06/22/2022 N/A Family History Medical History Relation Name Comments Melanoma Father Family history of malignant melanoma - (Added by TW Conv) Relation Name Status Comments Father Social History Tobacco Use Types Packs/Day Years [...] on file Legal 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 Gender Identity Not on file Sexual Orientation Not on file Obstetrics History Last Filed Vital Signs Vital Sign Reading [...] 06/07/2023 10:16 AM CDT Plan of Treatment Health Maintenance Due Date Last Done Comments Colon Cancer Screening-Colonoscopy 1958 Depression Screening 1958 Fall Risk Assessment 1958 Hepatitis C Screening 1958 Prostate Cancer Screening-PSA 1958 DTaP/Tdap/Td Vaccine (1 - Tdap) 1969 Hepatitis B Screening 1976 Pneumococcal vaccine 65+ (1 of 1 - PCV) 2008 Zoster Vaccine (1 of 2) 2008 Well Visit 65+ 06/10/2023 Covid-19 Vaccine ( - season) 2023, 06/16/2020 Influenza Vaccine (#1) 2023 , 12/19/2018, 11/17/2012 Insurance MEDICARE [facility] CIGNA OPEN ACCESS [facility] MEDICARE [facility] Care Teams Dining Room Supervisor Relationship Specialty [place] [address] [address], [address] [place] [address] PCP - General Family Medicine 11/17/23 Luz Marina Mcnamara PA [address] [facility] DEPT OTOLARYNGOLOGY, [address] [address] Physician Candy Roller Physician Candy Roller 01/26/24
--- OUTSIDE RECORDS SUMMARY | 2024-05-30 06:41 | XMS_ITS | Encounter Summary ---
Author Organization [facility] Address [address] [place] [address] Care Team Providers Care Phys Therapist Name Role Phone Pao Macias [facility] Primary Care Provider + Krystle Devine [facility] Primary Care Provider + Encounter Details Date Type Department Care Team (Late st Contact Info) Description 07/15/2022 Therapy Plan [facility] [address] [place] [address] Pao Macias [facility] [address] [place] [id number] Social History Tobacco Use Types Packs/Day Years Used Date Smoking Tobacco: Former Cigarettes Q uit: 11/12/1999 Passive Smoke Exposure: Past Smokeless Tobacco: Never Alcohol Use Standard Drinks/Week Comments Yes 16.7 (1 standard drink = 0.6 oz pure alcohol) Pt avarage 1-2 beers night Humiliation, Afraid, Rape, and Kick questionnair [...] place to sleep or slept in a penitentiary (including now)? No 04/19/2022 Education Answer Date [...] file Not on file Not on file COVID-19 Exposure Response Date Recorded In the last 10 days, have yo u been in contact with someone who was confirmed or suspected to have Coronavirus/COVID-19? No / Unsure 07/18/2022 2:45 PM CDT documented as of this encounter Functional Status * RETIRED Are you deaf or do you have serious difficulty hearing Answer Date of Assessment Author Status No 04/19/2022 2:00 PM CLOTH HAND Activ e * RETIRED Are you blind or do you have serious difficulty seeing, even when wearing glasses? Answer Date of Assessment Author Status No 04/19/2022 2:00 PM CLOTH HAND Activ e * Do you have serious [...] Description 08/01/2024 8:00 AM CDT Office Visit [facility] Medical Group Family & Internal Medicine [address] [address] Krystle Devine FNP-BC [address] [place] [address], [address] [place], [place] [id number] documented as of this encounter Visit Diagnoses Not on filedocumented in this encounter Care Teams Phys Therapist Relationship Specialty Start Date End Date Pao Macias FNP-BC PCP - General Nurse Practitioner Family 11/12/1910/20 Krystle Devine FNP-BC [facility] [address], [address] [place] [address] PCP - General Nurse Practitioner Family 10/21/22 documented as of this encounter
--- OUTSIDE RECORDS SUMMARY | 2024-05-30 06:41 | XMS_ITS | Clinical Summary ---
Author Organization [facility] Address [address] [place] [address] Care Team Providers Care Epic Application Coordinator Name Role Phone NilsonKrystle casillas Joe [facility] Primary Care Provider + Allergies Active Allergy Reactions Criticality Noted Date Comments Neomycin-Bacitracin Zn-Polymyx Unknown 08/28 Medications aspirin EC (ECOTRIN) 81 MG tablet Take 1 tablet (81 mg total) by mouth daily. 6 Active levothyroxine (SYNTHROID) 125 MCG tablet Take 1 tablet (125 mcg total) by mouth daily. 2 Active Blood Pressure Monitoring KitIndications:E levated blood pressure reading without diagnosis of hypertension 1 Application by Does not apply route daily. 1 kit 3 Active folic acid (FOLVITE) 1 MG tablet Take 1 tablet (1 mg total) by mouth daily. 3 Active spironolactone (ALDACTONE) 100 MG tablet Take 1 tablet (100 mg total) by mouth every morning. 3 Active omeprazole (PRILOSEC) 20 MG capsule Take 2 capsules (40 mg total) by mouth daily. 3 Active tamsulosin (FLOMAX) 0.4 MG Cap 3 Active furosemide (LASIX) 40 MG tabletIndication s:Edema, unspecified type TAKE 1 TABLET (40 MG TOTAL) BY MOUTH DAILY 90 tablet 1 4 Active Additional Information Patient not taking.Reported on 02/02/2024 Active Problems Problem Noted Date Diagnosed Date Non-recurrent unilateral ing uinal hernia without obstruction or gangrene 11/17/2023 Cirrhosis of liver with asci kay, unspecified hepatic cirrhosis type ([facility]) 03/07/2023 Ascites of liver 12/12/2022 Hyponatremia 04/19/2022 DDD (degenerative disc disease), cervical 2019 Acquired hypothyroidism 09/15/2017 Adverse effect of radiation 01/27/2017 Fatigue 01/27/2017 Asymptomatic varicose veins of lower extremity 0 11/13/2015 Inguinal hernia, right 11/13/2015 Kyphosis 11/13/2015 Male erectile disorder of organic origin 014 Vitamin B12 deficiency 12/20/2013 Memory loss 12/17/2013 Weight loss, unintentional 12/17/2013 Resolved Problems Problem Noted Date Diagnosed Date Resolved Date Throat cancer ([facility]) 11/13/2015 06/05/2023 Encounter for preventive health examination 07/23/2012 11/29/2019 Squamous cell carcinoma of t onsil ([facility]) 05/03/2005 06/05/2023 Encounters Date Type Department Care Team Description 03/26/2024 Scan [facility] Scanned, [facility] from Last 3 Months Immunizations Name Administration Dates Next Due FLUAD (IIV, Trivalent, 0.5 M L Pre-filled Syringe) 12/13/2023 Influenza (Generic) 02/06/2023 Influenza Adult (Generic) 01/19/2022,05/2020,12/27/2019, 019,11/17/2012 PFIZER COVID-19 (ORIGINAL FORMULATION, PURPLE CAP) mRNA, LNP-S, PF, 30 MCG/0.3 ML DOSE 07/09/2020,06/16/2020 Family History Medical History Relation Comments Cancer Father melanoma, back Stent Cardiac Mother Relation Status Comments Father Mother Social History Tobacco Use Types Packs/Day Years Used Date Smoking Tobacco: Former Cigarettes Q uit: 11/12/1999 Passive Smoke Exposure: Past Smokeless Tobacco: Never Tobacco Cessation:Counseling Given: No Alcohol Use Standard Drinks/Week Comments Not Currently 1.7 (1 standard drink = 0.6 oz p ure alcohol) nonalcoholic Humiliation, Afraid, Rape, and Kick questionnair e [...] Date Recorded Patient Health Questionnaire-2 Score 0 06/05/2023 Hunger Vital Sign Answer Date Recorded Within [...] place to sleep or slept in a care home (including now)? No 04/19/2022 Education Answer Date [...] Not on file Not o n file Last Filed Vital Signs Vital Sign Reading Time Taken Comments Blood Pressure 130/80 02/02/2024 9:55 AM CHARGING CAR OPERATOR man ual Pulse 63 02/02/2024 9:14 AM CHARGING CAR OPERATOR Temperature 36.5 C (97.7 F) 02/02/2024 9:14 AM CHARGING CAR OPERATOR Respiratory Rate 16 02/02/2024 9:14 AM CHARGING CAR OPERATOR Oxygen Saturation 99% 02/02/2024 9:14 AM CHARGING CAR OPERATOR Inhaled Oxygen Concentration - - Weight 66.2 kg (146 lb) 02/02/2024 9:14 AM CHARGING CAR OPERATOR Height 182.9 cm (6') 02/02/2024 9:14 AM CHARGING CAR OPERATOR Body Mass Index 19.8 02/02/2024 9:14 AM CHARGING CAR OPERATOR Plan of Treatment Upcoming Encounters Date Type Department Care Team (Late st Contact Info) Description 08/01/2024 8:00 AM CDT Office Visit [facility] Medical Group Family & Internal Medicine [facility] [id number] [place] [phone] Krystle Devine, [facility] [id number] [place] [address], [address] [place] [address] Health Maintenance Due Date Last Done Comments Pneumococcal Vaccine: 65+ Years (1 of 2 - PCV) 1964 Pneumococcal Vaccine: Pediatrics (0 to 5 Years) and At-Risk Patients (6 to 64 Years) (1 of 2 - PCV) 1964 DTaP, Tdap and Td Vaccines (1 - Tdap) 1977 Zoster Vaccines (1 of 2) 2008 RSV Immunization or 60+ Years (1 - Risk 60-74 years 1-dose series) 2018 PHQ-2 (Physician [place]) 03/20/2024 06/05/2023 Colorectal Cancer Screening Colonoscopy (10 Years) 10/10/2032 10/10/2022 AAA SCREENING Completed 07/12/2022, 06/15/2022 Hepatitis C Completed 09/15/2022 COVID-19 Vaccine Completed 12/13/2023, 05/2022, 07/09/2020, Additional history exists Influenza Adult Completed 12/13/2023, 01/19, 01/19/2022, Additional history exists Meningococcal B Vaccine Aged Out No l onger eligible based on patient's age to complete this topic Meningococcal Vaccine Aged Out No danitza fanta eligible based on patient's age to complete this topic RSV Immunizations Under 20 Months Aged Out No longer eligible based on patient's age to complete this topic Procedures Procedure Name Priority Date/Time Associated Diagnosis Comments COLONOSCOPY GENERIC (SCAN ORDER) 10/10/2022 HEP C SCANNED ORDERS Routine 09/15/2022 PET EYE TO THIGH [id number] Routine 07/12/2022 5:30 PM CDT Other ascites Splenomegaly Abnormal CT of the abdomen from Last 3 Months or Most Recently Relevant to Health Maintenance Results * COLONOSCOPY GENERIC (10/10/2022) 10/10/2022 [facility] Scanned SCANNING Final Resu lt * HEP C SCANNED ORDERS (09/15/2022) [facility] Scanned SCANNING Final Resu lt [facility] ON[facility] * PET EYE TO THIGH INIT (07/12/2022 5:30 PM CDT) Anatomical Region Laterality Modality Body Positron Emissio n Tomography (PET) 07/14/2022 2:29 PM CDT Impressions 07/14/2022 2:55 PM CDT IMPRESSION: 1. There is an area of wispy very mild FDG uptake in the left upper quadrant which is indeterminate. This could be misregistered and related to physiologic bowel activity or could possibly correspond with the ill-defined enhancing mesenteric nodularity seen on the prior contrast enhanced CT. 2. Mild diffuse FDG uptake associated with extensive anasarca. 3. Mild FDG activity associated with large volume ascites. Findings raise concern for potential malignant ascites. Recommend correlation with cytology. 4. No FDG evidence of local recurrence of the patient's oropharyngeal squamous cell carcinoma in the oropharynx or left neck. Ordered By: PAO GRISSOM Interpreted By: Barbara Guy MD, 07/14/2022 2:29 PM Narrative 07/14/2022 2:55 PM CDT EXAMINATION: TUMOR FDG-PET/CT IMAGING DATE OF STUDY: 07/12/2022 SCANNER: [employer] RADIOPHARMACEUTICAL: 12.7 mCi F-18 Fluorodeoxyglucose (FDG) i.v. Injection site: Left antecubital fossa HISTORY: 62-year-old man with new ascites of uncertain etiology. Possible abdominal mass in the left upper quadrant on recent CT. 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 He completed postoperative radiation therapy in 2003. He is 19 years out from completing therapy without evidence of recurrent disease at routine ENT follow-up. The study is requested for diagnosis. Initial treatment strategy. TECHNIQUE: The patient's fasting blood glucose level, measured by glucometer before injection of FDG, was 105 mg/dL. MD-Gastroview was not given orally. After intravenous administration of FDG, noncontrast CT images were obtained for attenuation correction and for fusion with emission PET images to allow for anatomical localization of PET findings. Emission PET images were then obtained. The study was interpreted on the Bundle workstation. The mean liver SUV (reported for quality review trainer purposes) is 2.0. The total scanned area was skull base to the proximal thighs. Images of the body were obtained starting 67 minutes after injection of tracer. COMPARISON: No prior FDG PET/CT. CT Abdomen and Pelvis with contrast 06/15/2022 FINDINGS: There is mild diffuse FDG uptake associated with extensive anasarca throughout the body. There is large volume ascites with mild FDG uptake. There is an area of wispy mildly increased FDG uptake in the left upper quadrant with max SUV 2.7, slightly above blood pool. Its uncertain whether this corresponds to the area of nodular mesenteric enhancement or simply represents some misregistered physiologic bowel activity. Mildly increased symmetric FDG uptake along the lateral abdominal wall musculature is likely physiologic. Increased FDG uptake associated with fluid throughout the left maxillary sinus is likely infectious/inflammatory. Suboptimal imaging of the included head due to technique and patient positioning. Postsurgical changes to the oropharynx and left neck. No abnormal focal FDG uptake in the left neck or oropharynx to suggest recurrence. Mild inflammatory FDG uptake associated with basilar atelectasis or scarring. Mild focal FDG uptake associated with a healing left lateral eighth rib fracture. Additional old left seventh posterior rib fracture. Additional CT findings: Atherosclerotic calcification of the carotid arteries. Coronary artery calcifications. Mild pulmonary emphysema and biapical scarring. Old granulomatous disease. Suboptimal evaluation of the abdominal pelvic contents due to extensive anasarca and ascites. Atherosclerotic calcification of the abdominal aorta. Colonic diverticulosis. Pelvic phleboliths. Multilevel spondylosis. Procedure Note Barbara Guy MD - 07/14/2022 EXAMINATION: TUMOR FDG-PET/CT IMAGING DATE OF STUDY: 07/12/2022 SCANNER: [employer] RADIOPHARMACEUTICAL: 12.7 mCi F-18 Fluorodeoxyglucose (FDG) i.v.Injection site: Left antecubital fossa HISTORY: 62-year-old man with new ascites of uncertain etiology. Possibleabdominal mass in the left upper quadrant on recent CT. 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 He completedpostoperative radiation therapy in 2003. He is 19 years out fromcompleting therapy without evidence of recurrent disease at routine ENTfollow-up. The study is requested for diagnosis. Initial treatment strategy. TECHNIQUE: The patient's fasting blood glucose level, measured byglucometer before injection of FDG, was 105 mg/dL. TICOGastroview was notgiven orally. After intravenous administration of FDG, noncontrast CTimages were obtained for attenuation correction and for fusion withemission PET images to allow for anatomical localization of PET findings.Emission PET images were then obtained. The study was interpreted on [employer] workstation. The mean liver SUV (reported for quality controlpurposes) is 2.0. The total scanned area was skull base to the proximal thighs. Images ofthe body were obtained starting 67 minutes after injection of tracer. COMPARISON: No prior FDG PET/CT. CT Abdomen and Pelvis with contrast06/15/2022 FINDINGS: There is mild diffuse FDG uptake associated with extensive anasarcathroughout the body. There is large volume ascites with mild FDG uptake. There is an area of wispy mildly increased FDG uptake in the left upperquadrant with max SUV 2.7, slightly above blood pool. Its uncertainwhether this corresponds to the area of nodular mesenteric enhancement orsimply represents some misregistered physiologic bowel activity. Mildly increased symmetric FDG uptake along the lateral abdominal wallmusculature is likely physiologic. Increased FDG uptake associated with fluid throughout the left maxillarysinus is likely infectious/inflammatory. Suboptimal imaging of the included head due to technique and patientpositioning. Postsurgical changes to the oropharynx and left neck. No abnormal focalFDG uptake in the left neck or oropharynx to suggest recurrence. Mild inflammatory FDG uptake associated with basilar atelectasis orscarring. Mild focal FDG uptake associated with a healing left lateral eighth ribfracture. Additional old left seventh posterior rib fracture. Additional CT findings: Atherosclerotic calcification of the carotidarteries. Coronary artery calcifications. Mild pulmonary emphysema andbiapical scarring. Old granulomatous disease. Suboptimal evaluation of theabdominal pelvic contents due to extensive anasarca and ascites.Atherosclerotic calcification of the abdominal aorta. Colonicdiverticulosis. Pelvic phleboliths. Multilevel spondylosis. IMPRESSION: 1. There is an area of wispy very mild FDG uptake in the left upperquadrant which is indeterminate. This could be misregistered and relatedto physiologic bowel activity or could possibly correspond with theill-defined enhancing mesenteric nodularity seen on the prior contrastenhanced CT. 2. Mild diffuse FDG uptake associated with extensive anasarca. 3. Mild FDG activity associated with large volume ascites. Findings raiseconcern for potential malignant ascites. Recommend correlation withcytology. 4. No FDG evidence of local recurrence of the patient's oropharyngealsquamous cell carcinoma in the oropharynx or left neck. Ordered By: PAO GRISSOM Interpreted By: Barbara Guy MD, 07/14/2022 2:29 PM Pao Grissom MUSIC ASSISTANT-BC PET Final Re sult from Last 3 Months or Most Recently Relevant to Health Maintenance Insurance MEDICARE [facility] Advance Directives * Full Code (Latest Code Status on File) Date Activated Date Inactivated Comments 04/19/2022 10:57 AM 04/22/2022 6:08 PM Care Teams Epic Application Coordinator Relationship Specialty Start Date End Date Krystle Devine, MUSIC ASSISTANT- [id number], [address] [place] [address] PCP - General Nurse Practitioner Family 10/21/22
--- OUTSIDE RECORDS SUMMARY | 2024-05-30 06:41 | XMS_ITS | Clinical Summary ---
Author Organization [facility] Address [address], [facility] [address] [place] [address] Phone Care Team Providers Care Sew Out Operator Name Role Phone Pao Macias APRN, CNP Primary Care Provide r Mehdi Lewis MD Unavailable [phone] Allergies Active Allergy Reactions Criticality Noted Date Comments Neomycin-Bacitracin Zn-Polymyx Unknown 08/28 Medications levothyroxine (SYNTHROID) 125 MCG Tablet Take 125 mcg by mouth daily. 3 Active furosemide (LASIX) 40 MG Tablet Take 40 mg by mouth daily. 3 Active amLODIPine (NORVASC) 5 MG Tablet 3 Active aspirin EC 81 MG Tablet Delayed Response Take 81 mg by mouth. 6 Active omeprazole (PriLOSEC) 20 MG CAPSULE DELAYED RELEASE TAKE 2 CAPSULES BY MOUTH DAILY 3 Active folic acid (FOLVITE) 1 MG TabletIndication s:Cirrhosis of liver with ascites, unspecified hepatic cirrhosis type (HCC) TAKE 1 TABLET BY MOUTH EVERY DAY 90 Tablet 1 5 Active Encounters Date Type Department Care Team Description 04/05/2024 Refill [facility] [address] [address] Mehdi Lewis MD Medication Refill from Last 3 Months Family History Medical History Relation Name Comments Cancer Brother 1 Cancer Father Stroke Mother Relation Name Status Comments Brother 1 Brother 2 Alive Father Mother Social History Tobacco Use Types Packs/Day Years Used Date Smoking Tobacco: Former Cigarettes Q uit: 2001 Smokeless Tobacco: Never Tobacco Cessation:Counseling Given: Not Answered Alcohol Use Standard Drinks/Week Comments Yes 1 (1 standard drink = 0.6 oz pur e alcohol) per day Sex and Gender Information Value Date Recorded Sex Assigned at Not on file Legal Sex Male 2:01 PM CDT Gender Identity Not on file Sexual Orientation Not on file Last Filed Vital Signs Vital Sign Reading Time Taken Comments Blood Pressure 128/80 11/03/2022 10:48 AM CDT Pulse 55 11/03/2022 10:48 AM CDT Temperature 36.3 C (97.3 F) 11/03/2022 10:48 AM CDT Respiratory Rate 18 11/03/2022 10:48 AM CDT Oxygen Saturation 93% 11/03/2022 10:48 AM CDT Inhaled Oxygen Concentration - - Weight 73.8 kg (162 lb 9.6 oz) 11/03/2022 10:48 AM CDT Height 182.9 cm (6') 11/03/2022 10:48 AM CDT Body Mass Index 22.05 11/03/2022 10:48 AM CDT Plan of Treatment Health Maintenance Due Date Last Done Comments Hepatitis C Virus (HCV) Screening 1960 TdaP Immunization 1958 Pneumococcal Immunization (50+ years) (1 of 2 - PCV) 1977 Cologuard 2008 Immunochemical Fecal Occult Blood 2008 Zoster Immunization (1 of 2) 2008 PSA Discussion 2013 Hepatitis B Immunization (1 of 3 - Risk 3-dose series) 2018 Respiratory Syncytial Virus (RSV) Immunization (Adult) (1 - Risk 60-74 years 1-dose series) 2018 Influenza Immunization (#1) 2023 11/0 04/2021, 01/19/2022, 01/20/2021, Additional history exists SARS-COV-2 Immunization ( season) 2023 07/09/2020, 06/16/2020 Colonoscopy 10/10/2032 10/10/2022 Colorectal Cancer Screening 10/10/2032 10/10/2022 Meningococcal Immunization (ACWY) Aged Out No longer eligible based on patient's age to complete this topic Rotavirus Immunization Aged Out No lo nger eligible based on patient's age to complete this topic Insurance [employer] Care Teams Sew Out Operator Relationship Specialty Start Date End Date Pao Macias APRN, STRUCTURAL TEST ENGINEER [address] [place] [address] PCP - General Advanced Practice Nurse 07/15/22 Mehdi Lewis MD [address] [place] [address] Consulting Physician Oncology 08/28/23
--- OUTSIDE RECORDS SUMMARY | 2024-05-30 06:41 | XMS_ITS | Encounter Summary ---
Author Organization [facility] Address [address] [place] [address] Care Team Providers Care Senior Web Applications Developer Name Role Phone Pao Macias [facility] Primary Care Provider + Krystle Devine [facility] Primary Care Provider + Encounter Details Date Type Department Care Team (Late st Contact Info) Description 10/17/[address] [facility] One Day Services [address] [place], [place] [phone] Pao Macias [facility] [address] [place] [phone] Social History Tobacco Use Types Packs/Day Years [...] Assessment Author Status No 04/19/2022 2:00 PM BABBITT SPINNER Activ e * RETIRED Are you blind or do you have serious difficulty seeing, even when wearing glasses? Answer Date of Assessment Author Status No 04/19/2022 2:00 PM BABBITT SPINNER Activ e * Do you have serious [...] Description 08/01/2024 8:00 AM CDT Office Visit [facility] Medical Group Family & Internal Medicine [facility] [address] [place] [phone] Krystle Devine FNP-NEAL [address] [address] documented as of this encounter Visit Diagnoses Not on filedocumented in this encounter Care Teams Senior Web Applications Developer Relationship Specialty Start Date End Date Pao Macias FNP-NEAL PCP - General Nurse Practitioner Family 11/[birth year]10[birth year]20 Krystle Devine FNP-NEAL [id number] [place] [address], [address] [address] PCP - General Nurse Practitioner Family 10/21/22 documented as of this encounter
--- OUTSIDE RECORDS SUMMARY | 2024-05-30 06:41 | XMS_ITS | Encounter Summary ---
Author Organization [facility] Address [address] [place] [address] Care Team Providers Care Digital Media Representative Name Role Phone Pao Macias [facility] Primary Care Provider + Krystle Devine [facility] Primary Care Provider + Encounter Details Date Type Department Care Team (Late st Contact Info) Description 10/17/2022 Hospital Orders Only [facility] One Day Services [address] [place], [place] [phone] Pao Macias [facility] [address] [place] [address] Social History Tobacco Use Types Packs/Day Years [...] Assessment Author Status No 04/19/2022 2:00 PM TAG CLERK Activ e * RETIRED Are you blind or do you have serious difficulty seeing, even when wearing glasses? Answer Date of Assessment Author Status No 04/19/2022 2:00 PM TAG CLERK Activ e * Do you have serious [...] Description 08/01/2024 8:00 AM CDT Office Visit [facility] Family & Internal Medicine [facility] [address] [place] [phone] Krystle Devine FNP-NEAL [address] [facility], [address] [address] documented as of this encounter Visit Diagnoses Not on filedocumented in this encounter Care Teams Digital Media Representative Relationship Specialty Start Date End Date Pao Macias FNP-BC PCP - General Nurse Practitioner Family 11/[birth year]10[birth year]20 Krystle Devine FNP-NEAL [address] [facility], [address] [address] PCP - General Nurse Practitioner Family 10/21/22 documented as of this encounter
--- OUTSIDE RECORDS SUMMARY | 2024-05-30 06:41 | XMS_ITS | Encounter Summary ---
Author Organization [facility] Address [address] [place] [address] Phone Care Team Providers Care Volunteer Services Manager Name Role Phone Pao Macias APRN, COMMERCIAL LINES INSURANCE AGENT Primary Care Provide r Mehdi Lewis MD Unavailable Reason for Visit * Reason Comments Medication Refill Encounter Details Date Type Department Care Team (Late st Contact Info) Description 09/13/2022 Refill [facility] [address] [address] Mehdi Lewis MD [address] [place] [phone] Medication Refill Social History Tobacco Use [...] Telephone Encounter - Thu Mendoza RN - 09/13/2022 11:37 AM CDT Refill request from pharmacy. Please fill if appropriate. documented in this encounter Plan of Treatment Not on file documented as of this encounter Visit Diagnoses Diagnosis Cirrhosis of liver with ascites, unspecified hepatic cirrhosis type (HCC) documented in this encounter Care Teams Volunteer Services Manager Relationship Specialty Start Date End Date Pao Macias APRN, COMMERCIAL LINES INSURANCE AGENT [address] [place] [address] PCP - General Advanced Practice Nurse 07/15/22 Mehdi Lewis MD [address] [place] [address] Consulting Physician Oncology 08/28/23 documented as of this encounter
--- OUTSIDE RECORDS SUMMARY | 2024-05-30 06:41 | XMS_ITS | Encounter Summary ---
Author Organization [facility] Address [address] [place] [address] Phone Care Team Providers Care Fermenter Operator Name Role Phone Pao Macias APRN, RELEASE COORDINATOR Primary Care Provide r Mehdi Lewis MD Unavailable Reason for Visit * Reason Comments Medication Refill Encounter Details Date Type Department Care Team (Late st Contact Info) Description 10/07/2022 Refill [facility] [address] [address] Mehdi Lewis MD [address] [place] [phone] Medication Refill Social History Tobacco Use [...] Telephone Encounter - Thu Mendoza RN - 10/07/2022 10:02 AM CDT Refill request from pharmacy. Please fill if appropriate. documented in this encounter Plan of Treatment Not on file documented as of this encounter Visit Diagnoses Diagnosis Cirrhosis of liver with ascites, unspecified hepatic cirrhosis type (HCC) documented in this encounter Care Teams Fermenter Operator Relationship Specialty Start Date End Date Pao Macias APRN, RELEASE COORDINATOR [address] [place] [address] PCP - General Advanced Practice Nurse 07/15/22 Mehdi Lewis MD [address] [place] [address] Consulting Physician Oncology 08/28/23 documented as of this encounter
--- OUTSIDE RECORDS SUMMARY | 2024-05-30 06:41 | XMS_ITS | Clinical Summary ---
Author Organization [facility] Address [address] [facility] [place] [address] Care Team Providers Care Dictating Machine Mechanic Name Role Phone Unavailable Primary Care Provider Unavailabl e Source Comments [facility] [employer],non-owned Affiliates and Associated Physician Practices is amultiple site organization consisting of ambulatory clinics and hospital sitesin [place], [place], [place] and [place]. This disclosure is being madepursuant to the Care Everywhere program and may not contain all information available regarding this patient. Last updated 17.[facility] [employer] Social History Tobacco Use Types Packs/Day Years Used Date Smoking Tobacco: Never Assessed Sex and Gender Information Value Date Recorded Sex Assigned at Not on file Gender Identity Not on file Sexual Orientation Not on file Plan of Treatment Health Maintenance Due Date Last Done Comments COLOGUARD (AGES 45-75) - COL ON CA SCREENING 1960 COLON MONITORING 1958 COLONOSCOPY - COLON CA SCREENING 1958 CT COLONOGRAPHY - COLON CA SCREENING 1958 Colorectal Cancer Screening 1958 FIT - COLON CA SCREENING 1958 FLEX SIG - COLON CA SCREENING 1958 LIPID TESTING 1958 MEDICARE AWV 12 MONTHS 1958 HIV SCREENING 1973 HEPATITIS C SCREENING 06/04/1976 DTAP/TDAP/TD VACCINES (1 - Tdap) 1977 PNEUMOCOCCAL VACCINE 50+ (1 of 1 - PCV) 2008 ZOSTER VACCINE (1 of 2) 2008 COVID-19 VACCINE ( - 2023-2 5 season) 2023 INFLUENZA VACCINE (#1) 2023 DEPRESSION SCREENING 03/20/2024 Respiratory Syncytial Virus (RSV) Vaccine Pt: or over 60 yrs (1 - 1-dose 75+ series) 2033 HEPATITIS B VACCINE Aged Out No longe r eligible based on patient's age to complete this topic HIB VACCINE Aged Out No longer eligi ble based on patient's age to complete this topic HPV VACCINE Aged Out No longer eligi ble based on patient's age to complete this topic MENINGOCOCCAL (Group B) VACC INE SHARED DECISION-MAKING Aged Out No longer eligibl e based on patient's age to complete this topic MENINGOCOCCAL GROUPS A/C/Y/W VACCINE Aged Out No longer eligible b ased on patient's age to complete this topic
--- OUTSIDE RECORDS SUMMARY | 2024-05-30 06:41 | XMS_ITS | Encounter Summary ---
Author Organization [facility] Address [address] [facility] [place] [address] Care Team Providers Care System Programmer Name Role Phone Unavailable Primary Care Provider Unavailabl e Encounter Details Date Type Department Care Team (Late st Contact Info) Description 07/04/2023 Lab Requisition [facility] - DermPath Lab [address] [facility], [place] [phone] Mariam Khoury MD [address] [place] [address] [place] [address] Neoplasm of uncertain behavior of skin Social History Tobacco Use Types Packs/Day Years Used Date Smoking Tobacco: Never Assessed Sex and Gender Information Value Date Recorded Sex Assigned at Not on file Gender Identity Not on file Sexual Orientation Not on file documented as of this encounter Plan of Treatment Not on file documented as of this encounter Procedures Procedure Name Priority Date/Time Associated Diagnosis Comments DERMATOPATHOLOGY Routine 07/04/2023 12:0 0 AM CDT Neoplasm of uncertain behavior of skin documented in this encounter Results * DERMATOPATHOLOGY (07/04/2023 12:00 AM CDT) Case Report Dermatopathology Report Case: [id number] Authorizing Provider: Mariam Khoury MD Collected: 07/04/2023 12:00 AM Ordering Location: [facility] Physician [facility] - Received: 07/07/2023 06:45 AM DermPath Lab [...] shave biopsy measuring 9x8x1 mm. Jar 0. 4:50 PM CDT DERMATOPATHOLOGY LABORATORY Microscopic Description Specimen A. SKIN, left buccal cheek: Within the dermis there are aggregates of basaloid cells with a high nuclear to cytoplasmic ratio and peripheral palisading. 4:50 PM CDT DERMATOPATHOLOGY LABORATORY Disclaimer An external and internal positive and negative controls are appropriate for the histochemical, immunohistochemical and immunofluorescence stain(s) in this case (if any), except where stated explicitly. The performance characteristics of the stain(s) cited in this report were developed and its performance characteristic determined by the Dermatopathology Laboratory at [facility], directed by Dr. Luis M Pressley. These tests need not be, and therefore are not, approved by the [place] Food and Drug Administration. The tests are used for clinical purposes. Billing Codes Specimen Charges Stain Charges 22385 1 4 4:50 PM CDT DERMATOPATHOLOGY LABORATORY Embedded Images 4:50 PM CDT DERMATOPATHOLOGY LABORATORY Pathology/Cytolog y TISSUE SPECIMEN FROM SKIN / Unknown 07/04/2023 07/07/2023 6:45 AM CDT Mariam Khoury MD LAB - PATHOLOGY/CYTO LOGY ORDERABLES DERMATOPATHOLOGY LABORATORY [facility] Department of Dermatology [address], [address] [phone] documented in this encounter Visit Diagnoses Diagnosis Neoplasm of uncertain behavior of skin documented in this encounter
--- OUTSIDE RECORDS SUMMARY | 2024-05-30 06:41 | XMS_ITS | Encounter Summary ---
Author Organization [facility] Address [address] [place] [address] Care Team Providers Care Canoe Builder Name Role Phone Krystle Devine [facility] Primary Care Provider + Encounter Details Date Type Department Care Team (Late st Contact Info) Description 12/12/2022 Therapy Plan [facility] One Day Services [address] [facility] [place] [place] [id number] Krystle Devine, [facility] [address] [facility], [address] [place] [address] Social History Tobacco Use Types Packs/Day Years [...] place to sleep or slept in a half-way (including now)? No 04/19/2022 Education Answer Date [...] Assessment Author Status No 04/19/2022 2:00 PM MATERIALS CLERK Activ e * RETIRED Are you blind or do you have serious difficulty seeing, even when wearing glasses? Answer Date of Assessment Author Status No 04/19/2022 2:00 PM MATERIALS CLERK Activ e * Do you have [...] Description 08/01/2024 8:00 AM CDT Office Visit [facility] Family & Internal Medicine [facility] [address] [place] [address] Krystle Devine FNP-BC [address] [facility], [address] [phone] documented as of this encounter Visit Diagnoses Diagnosis Ascites of liver- Primary documented in this encounter Care Teams Canoe Builder Relationship Specialty Start Date End Date Krystle Devine FNP-BC [address] [facility], [address] [address] PCP - General Nurse Practitioner Family 10/21/22 documented as of this encounter
--- OUTSIDE RECORDS SUMMARY | 2024-05-30 06:41 | XMS_ITS | Encounter Summary ---
Author Organization [facility] Address [address] [place] [address] Phone Care Team Providers Care Gleason Operator Name Role Phone Pao Macias APRN, COMMODITIES TRADER Primary Care Provide r Mehdi Lewis MD Unavailable [phone] Reason for Visit * Reason Comments Medication Refill Encounter Details Date Type Department Care Team (Late st Contact Info) Description 08/13/2022 Refill [facility] [address] [address] Mehdi Lewis MD [address] [place] [phone] Medication Refill Social History Tobacco Use [...] on file Sexual Orientation Not on file COVID-19 Exposure Response Date Recorded In the last 10 days, have yo u been in contact with someone who was confirmed or suspected to have Coronavirus/COVID-19? No / Unsure 08/04/2022 11:02 AM CDT documented as of this encounter Miscellaneous Notes * Telephone Encounter - Thu Mendoza RN - 08/16/2022 11:13 AM CDT Refill request from pharmacy. Please fill if appropriate. documented in this encounter Plan of Treatment Not on file documented as of this encounter Visit Diagnoses Diagnosis Cirrhosis of liver with ascites, unspecified hepatic cirrhosis type (HCC) documented in this encounter Care Teams Gleason Operator Relationship Specialty Start Date End Date Pao Macias APRN, [place] [address] [place] [address] PCP - General Advanced Practice Nurse 07/15/22 Mehdi Lewis MD [address] [place] [address] Consulting Physician Oncology 08/28/23 documented as of this encounter
--- OUTSIDE RECORDS SUMMARY | 2024-05-30 06:41 | XMS_ITS | Encounter Summary ---
Author Organization [facility] Address [address] [place] [address] Phone Care Team Providers Care Typewriter Assembly And Parts Inspector Name Role Phone Pao Macias APRN, BUSINESS RESILIENCY MANAGER Primary Care Provide r Mehdi Lewis MD Unavailable Reason for Visit * Reason Comments Medication Refill Encounter Details Date Type Department Care Team (Late st Contact Info) Description 10/30/2022 Refill [facility] [address] [address] Mehdi Lewis MD [address] [place] [phone] Medication Refill Social History Tobacco Use [...] Telephone Encounter - Thu Mendoza RN - 10/31/2022 7:50 AM CDT Refill request from pharmacy. Please fill if appropriate. documented in this encounter Plan of Treatment Not on file documented as of this encounter Visit Diagnoses Diagnosis Cirrhosis of liver with ascites, unspecified hepatic cirrhosis type (HCC) documented in this encounter Care Teams Typewriter Assembly And Parts Inspector Relationship Specialty Start Date End Date Pao Macias APRN, BUSINESS RESILIENCY MANAGER [address] [facility] [place] [address] PCP - General Advanced Practice Nurse 07/15/22 Mehdi Lewis MD [address] [place] [address] Consulting Physician Oncology 08/28/23 documented as of this encounter
--- OUTSIDE RECORDS SUMMARY | 2024-05-30 06:41 | XMS_ITS | Encounter Summary ---
Author Organization [facility] Address [address] [place] [address] Phone Care Team Providers Care Pit Tanner Name Role Phone Pao Macias APRN, JIG WORKER Primary Care Provide r Mehdi Lewis MD Unavailable Reason for Visit * Reason Comments Medication Refill Encounter Details Date Type Department Care Team (Late st Contact Info) Description 08/27/2023 Refill [facility] [address] [address] Mehdi Lewis MD [address] [place] [address] Medication Refill Social History Tobacco Use [...] Telephone Encounter - Thu Mendoza RN - 08/28/2023 9:41 AM CDT Refill request from pharmacy. Please fill if appropriate. documented in this encounter Plan of Treatment Not on file documented as of this encounter Visit Diagnoses Diagnosis Cirrhosis of liver with ascites, unspecified hepatic cirrhosis type (HCC) documented in this encounter Care Teams Pit Tanner Relationship Specialty Start Date End Date Pao Macias APRN, JIG WORKER [address] [facility] [place] [address] PCP - General Advanced Practice Nurse 07/15/22 Mehdi Lewis MD [address] [place] [address] Consulting Physician Oncology 08/28/23 documented as of this encounter
[2024-05-30 08:40] LABS: Hematocrit 34.3 % (42.0-52.0); Hemoglobin 11.5 g/dL (14.0-18.0); Immature Platelet Fraction Pct 6.8 % (0.9-11.2); Mean Corpuscular HGB Conc 33.5 g/dl (32-36); Mean Corpuscular Hemoglobin 31.6 pg (26-34); Mean Corpuscular Volume 94.2 fl (80-100); Mean Platelet Volume 11.5 fl (7.4-10.4); Platelet Count Result 116 k/mm3 (150-375); Red Blood Count 3.64 M/mm3 (4.6-6.20); White Blood Count 5.6 K/mm3 (4.5-10.0)
[2024-05-30 08:51] LABS: Prothrombin Time 13.4 Seconds (11.1-14.7)
[2024-05-30 09:15] LABS: Alanine Aminotransferase 16 U/L (6-50); Albumin Level 4.5 g/dL (3.5-5.1); Alkaline Phosphatase 65 U/L (38-126); Anion Gap 11 mmol/L (4-12); Aspartate Amino Transferase 26 U/L (17-59); Bilirubin,Total 0.9 mg/dL (0.2-1.3); Blood Urea Nitrogen 47 mg/dL (9-20); Calcium 9.2 mg/dL (8.4-10.2); Carbon Dioxide 27 mmol/L (22-30); Chloride 97 mmol/L (98-107); Estimated Glomerular Filt Rate 47; Glucose 91 mg/dL (65-110); Potassium 4.6 mmol/L (3.4-5.0); Sodium 135 mmol/L (137-145)
== END 2024-05-30 06:37 | disposition home or self-care (01) ==
PROVIDERS: PCP Nurse Practitioner Family; Visit Provider Internal Medicine Gastroenterology
DX: K74.60 Unspecified cirrhosis of liver (principal); Z85.819 Personal history of malignant neoplasm of unspecified site of lip, oral cavity, and pharynx; R18.8 Other ascites
CPT/HCPCS: 36415; 76705; 80053; 85027; 85055; 85610

== ENCOUNTER 2024-11-29 07:05 | Outpatient (CLI) | payer MEDICARE, OTHER, SELFPAY ==
--- NOTE | ~2024-11-29 | US_ITS ---
US right upper quadrant Indication: K74.60 - Unspecified cirrhosis of liver Comparison: None Technique: Mantilla-scale and color Doppler images were obtained. Findings: LIVER: Mild heterogeneity of the liver. The liver contours are nodular. Small amount of ascites noted surrounding the liver.. . GALLBLADDER/BILIARY: Unremarkable.No cholelithiais, wall thickening or pericholecystic fluid. No biliary dilatation. CBD 3.6 mm. [place] sign negative. PANCREAS: Unremarkable. Right Kidney: Right kidney 9.6 x 5.4 x 5.5 cm, normal. Impression: Mild cirrhotic disease of the liver Reviewed, dictated and finalized at location A. Impression: Mild cirrhotic disease of the liver
--- OUTSIDE RECORDS SUMMARY | 2024-11-29 07:08 | XMS_ITS | Encounter Summary ---
Author Organization [facility] Address [address] [place] [address] Care Team Providers Care Bid Manager Name Role Phone Pao Macias [facility] Primary Care Provider + Krystle Devine [facility] Primary Care Provider + Leonardo Crespo MD Primary Care Provider [phone] Encounter Details Date Type Department Care Team (Late st Contact Info) Description 07/15/2022 Therapy Plan [facility] One Day [facility] [address] [place] [address] Pao Macias [facility] [address] [place] [phone] Social History Tobacco Use Types Packs/Day Years [...] place to sleep or slept in a snf (including now)? No 04/19/2022 Education Answer Date Recorded What is the highest level of school you have completed or the highest degree you have received? Bachelor's degree (e.g., BA, AB, BS) 11/12/2019 Sex and Gender Information Value Date Recorded Sex Assigned at Male 10/24/2024 8:18 AM CDT Legal Sex Male 7:49 PM CDT Gender Identity Male 10/24/2024 8:18 AM CDT Sexual Orientation Not on file Occupation Industry Job Start Date Job End Date Not on file Not on file Not on file Not on file COVID-19 Exposure Response Date Recorded In the last 10 days, have kinza u been in contact with someone who was confirmed or suspected to have Coronavirus/COVID-19? No / Unsure 07/18/2022 2:45 PM CDT documented as of this encounter Functional Status * RETIRED Are you deaf or do you have serious difficulty hearing Answer Date of Assessment Author Status No 04/19/2022 2:00 PM MECHANIC SOUND TECHNICIAN Activ e * RETIRED Are you blind or do you have serious difficulty seeing, even when wearing glasses? Answer Date of Assessment Author Status No 04/19/2022 2:00 PM MECHANIC SOUND TECHNICIAN Activ e * Do you have serious [...] Care Team (Late st Contact Info) Description 01/17/2025 8:50 AM CDT Laboratory Only [facility] Family & Internal Medicine [address] [address] 01/24/2025 9:20 AM MECHANIC SOUND TECHNICIAN Office Visit [facility] Family & Internal Medicine [address] [address] [place] [address] [facility] [address] [place] [address] 03/21/2025 1:00 PM MECHANIC SOUND TECHNICIAN Office Visit [facility] Multispecialty Care - [facility] [address] [facility], [address] [place] [address] Zulema Briseno MD [address] [place] [address] documented as of this encounter Visit Diagnoses Not on filedocumented in this encounter Care Teams Bid Manager Relationship Specialty Start Date End Date Pao Macias [facility] PCP - General Nurse Practitioner Family 11/12/1910/20 Krystle Devine [facility] PCP - General Nurse Practitioner Family 10/21/2208/20 [place] [address] [address] [place] [address] PCP - General INTERNAL MEDICINE 09/17/24 documented as of this encounter
--- OUTSIDE RECORDS SUMMARY | 2024-11-29 07:08 | XMS_ITS | Encounter Summary ---
Author Organization [facility] Address [address] [facility] [place] [address] Care Team Providers Care Printing Mechanist Name Role Phone Unavailable Primary Care Provider Unavailabl e Encounter Details Date Type Department Care Team (Late st Contact Info) Description 07/04/2023 Lab Requisition [facility] - DermPath Lab [address] [facility], [place] [address] Mariam Khoury MD [address] [place] [address] [place] [address] Neoplasm of uncertain behavior of skin Social History Tobacco Use Types Packs/Day Years Used Date Smoking Tobacco: Never Assessed Sex and Gender Information Value Date Recorded Sex Assigned at Not on file Legal Sex Male 7:06 AM CDT Gender Identity Not on file Sexual [...] AM CDT) Case Report Dermatopathology Report Case: [id number] Authorizing Provider: Mariam Khoury MD Collected: 07/04/2023 12:00 AM Ordering Location: [facility] - Received: 07/07/2023 06:45 AM DermPath Lab Pathologist: Olga Whitmore MD Specimen: Skin, left buccal cheek 4:50 PM CDT DERMATOPATHOLOGY LABORATORY Final Diagnosis Specimen A. SKIN, left buccal cheek: BASAL CELL CARCINOMA, NODULAR TYPE (C44.319) 4:50 PM CDT DERMATOPATHOLOGY LABORATORY at 1650 CDT Clinical History Neoplasm of Uncertain behavior vs [...] characteristic determined by the Dermatopathology Laboratory at [facility], directed by Dr. Luis M Pressley. These tests need not be, and therefore are not, approved by the [place] Food and Drug Administration. The tests are used for clinical purposes. Billing Codes Specimen Charges Stain Charges 66182 1 4 4:50 PM CDT DERMATOPATHOLOGY LABORATORY Embedded Images 4 4:50 PM CDT DERMATOPATHOLOGY LABORATORY Pathology/Cytolog y TISSUE SPECIMEN FROM SKIN / Unknown 07/04/2023 07/07/2023 6:45 AM CDT us Mariam Khoury MD LAB - PATHOLOGY/CYTOLOGY ORDERAB LES Final Result DERMATOPATHOLOGY LABORATORY [facility] - Department of Dermatology [address], [address] [phone] documented in this encounter Visit Diagnoses Diagnosis Neoplasm of uncertain behavior of skin documented in this encounter
--- OUTSIDE RECORDS SUMMARY | 2024-11-29 07:08 | XMS_ITS | Clinical Summary ---
Author Organization [facility] Address [address] [facility] [place] [address] Care Team Providers Care Organ Pipe Finisher Name Role Phone Unavailable Primary Care Provider Unavailabl e Source Comments [facility] [employer],non-owned Affiliates and Associated Physician Practices is amultiple site organization consisting of ambulatory clinics and hospital sitesin [place], [place], [place] and [place]. This disclosure is being madepursuant to the Care Everywhere program and may not contain all information available regarding this patient. Last updated 17.[facility] Social History Tobacco Use Types Packs/Day Years [...] TESTING 1960 MEDICARE AWV 12 MONTHS 1958 HEPATITIS C SCREENING 06/04/1976 DTAP/TDAP/TD VACCINES (1 - Tdap) 1977 PNEUMOCOCCAL VACCINE 50+ (1 of 1 - PCV) 2008 ZOSTER VACCINE (1 of 2) 2008 COVID-19 VACCINE ( - 2023-2 5 season) 2023 DEPRESSION SCREENING 03/20/2024 INFLUENZA VACCINE (#1) 2024 Respiratory Syncytial Virus (RSV) Vaccine Pt: or [...] patient's age to complete this topic Insurance MEDICARE [facility] [place] [id number]
--- OUTSIDE RECORDS SUMMARY | 2024-11-29 07:08 | XMS_ITS | Encounter Summary ---
Author Organization [facility] Address [address] [place] [address] Care Team Providers Care Jumpbasting Machine Operator Name Role Phone Krystle Devine [facility] Primary Care Provider + Leonardo Crespo MD Primary Care Provider [phone] Encounter Details Date Type Department Care Team (Late st Contact Info) Description 02/20/2023 [facility] Patient Accounts [address] [place] [address] [facility] Provider Action required Social History Tobacco [...] Assessment Author Status No 04/19/2022 2:00 PM ANKLE PATCH MOLDER Activ e * RETIRED Are you blind or do you have serious difficulty seeing, even when wearing glasses? Answer Date of Assessment Author Status No 04/19/2022 2:00 PM ANKLE PATCH MOLDER Activ e * Do you have serious [...] Description 01/17/2025 8:50 AM CDT Laboratory Only [facility] Family & Internal Medicine [address] [phone] 01/24/2025 9:20 AM ANKLE PATCH MOLDER Office Visit [facility] Family & Internal Medicine [address] [phone] [place] [address] [facility] [address] [place] [address] 03/21/2025 1:00 PM ANKLE PATCH MOLDER Office Visit [facility] Multispecialty Care - [facility] [address] [facility], [address] [place] [phone] Zulema Briseno MD [address] [place] [address] documented as of this encounter Visit Diagnoses Not on filedocumented in this encounter Care Teams Jumpbasting Machine Operator Relationship Specialty Start Date End Date Krystle Devine, [facility]- PCP - General Nurse Practitioner Family 10/21/2208/20 [place] [address] [place] [address] PCP - General INTERNAL MEDICINE 09/17/24 documented as of this encounter
--- OUTSIDE RECORDS SUMMARY | 2024-11-29 07:09 | XMS_ITS ---
Author Organization [facility] Address [facility] [place] [address] Care Team Providers Care Rod Bending Machine Operator Name Role Phone Leonardo Crespo MD Primary Care Provider [phone] Active Problems Problem Noted Date Diagnosed Date Dyslipidemia 10/24/2024 Assessment & Plan (10/24/2024 9:14 AM CDT): Lipid Profile Lab Results Component Value Date/Time CHOL 150 08/01/2024 09:34 AM Lab Results Component Value Date/Time HDL 38 (L) 08/01/2024 09:34 AM Lab Results Component Value Date/Time LDL 100 (H) 08/01/2024 09:34 AM Lab Results Component Value Date/Time TRI 62 08/01/2024 09:34 AM LDL supposed to be <70 due to CVA before. Will repeat labs Orders: COMPREHENSIVE METABOLIC PANEL; Future LIPID PANEL; Future CBC W/DIFF AUTOMATED; Future Gastroesophageal reflux dise ase, unspecified whether esophagitis present 10/24/2024 Assessment & Plan (10/24/2024 9:14 AM CDT): Currently omeprazole 20mg daily before bedtime. Recommended not to eat before his bedtime or large volume and lay down. Cut back on the spicy beverages and meals. If tolerable take as needed omeprazole and stop at one point due to risk of long-term side effects. Consider famotidine in future if tolerates-for now take as needed omeprazole. Orders: CBC W/DIFF AUTOMATED; Future Benign prostatic hyperplasia without lower urinary tract symptoms 10/24/2024 Assessment & Plan (10/24/2024 9:14 AM CDT): Currently on flomax at bedtime. Symptomatically feels better Orders: CBC W/DIFF AUTOMATED; Future Vitamin D deficiency 10/24/2024 Assessment & Plan (10/24/2024 9:14 AM CDT): Taking 50K weekly. Was 14 in July. Needs refill per the patient-check labs and send out refill Orders: VITAMIN D, 25 OH; Future CBC W/DIFF AUTOMATED; Future History of ischemic stroke 10/19/2024 Assessment & Plan (10/24/2024 9:14 AM CDT): July 2024 s/p fall/slurred speech/head injury. Under care by Neurologist Brain MRI: 1. Acute/subacute infarct within the left mid frontal centrum semiovale ovale. Please see above details. Also punctate acute/subacute infarct within the posterior left parietal lobe No residual issue. On event monitor since 10/03/24 TTE-overall OK Carotid doppler-R/side OK L/side:Large calcified shadowing plaque within the left carotid bulb limits evaluation. Follow-up with CTA of the neck - being handled by his Neurologist Orders: CBC W/DIFF AUTOMATED; Future History of basal cell carcinoma (BCC) 08/01/2024 History of throat cancer 08/01/2024 Assessment & Plan (10/24/2024 9:14 AM CDT): Under care at [facility] 6 monthly S/p radiation Rx Orders: CBC W/DIFF AUTOMATED; Future Non-recurrent unilateral ing uinal hernia without obstruction or gangrene 11/17/2023 Cirrhosis of liver with asci kay, unspecified hepatic cirrhosis type (CMS/HCC HHS/HCC) 03/07/2023 Assessment & Plan (10/24/2024 9:14 AM CDT): Treated with frequent US guided paracentesis previously. He is followed by Dr. Gregory, GI No issue lately Orders: CBC W/DIFF AUTOMATED; Future Ascites of liver 12/12/2022 Hyponatremia 04/19/2022 DDD (degenerative disc disease), cervical 2019 Acquired hypothyroidism 09/15/2017 Assessment & Plan (10/24/2024 9:14 AM CDT): Currently on LT 125 mcg daily Orders: TSH W/REFLEX; Future CBC W/DIFF AUTOMATED; Future Adverse effect of radiation 01/27/2017 Fatigue 01/27/2017 Asymptomatic varicose veins of lower extremity 0 11/13/2015 S/P inguinal hernia repair 11/13/2015 Kyphosis 11/13/2015 Male erectile disorder of organic origin 014 Vitamin B12 deficiency 12/20/2013 Memory loss 12/17/2013 Weight loss, unintentional 12/17/2013 Current Treatment and Therapy Plans No current plan information found. Past Treatment and Therapy Plans Resolved Problems Problem Noted Date Diagnosed Date Resolved Date Throat cancer ([facility]) 11/13/2015 06/05/2023 Encounter for preventive health examination 07/23/2012 11/29/2019 Squamous cell carcinoma of t onsil ([facility]) 05/03/2005 06/05/2023
--- OUTSIDE RECORDS SUMMARY | 2024-11-29 07:09 | XMS_ITS | Encounter Summary ---
Author Organization [facility] Address [address] [place] [address] Phone Care Team Providers Care Assistant Boiler Operator Name Role Phone Pao Macias APRN, GROUND SOURCE HEAT PUMP TECHNICIAN Primary Care Provide r Mehdi Lewis MD Unavailable Reason for Visit * Reason Comments Medication Refill Encounter Details Date Type Department Care Team (Late st Contact Info) Description 09/13/2022 Refill [facility] [address] [address] Mehdi Lewis MD [address] [place] [phone] Medication Refill Social History Tobacco Use [...] (HCC) documented in this encounter Care Teams Assistant Boiler Operator Relationship Specialty Start Date End Date Pao Macias APRN, GROUND SOURCE HEAT PUMP TECHNICIAN [address] [facility] [place] [address] PCP - General Advanced Practice Nurse 07/15/22 Mehdi Lewis MD [address] [place] [address] Consulting Physician Oncology 08/28/23 documented as of this encounter
--- OUTSIDE RECORDS SUMMARY | 2024-11-29 07:09 | XMS_ITS | Encounter Summary ---
Author Organization [facility] Address [address] [place] [address] Phone Care Team Providers Care Tongue Trimmer Name Role Phone Pao Macias APRN, DENITRATOR OPERATOR Primary Care Provide r Mehdi Lewis MD Unavailable [phone] Reason for Visit * Reason Comments Medication Refill Encounter Details Date Type Department Care Team (Late st Contact Info) Description 10/07/2022 Refill [facility] [address] [address] Mehdi Lewis MD [address] [place] [phone] Medication Refill Social History Tobacco Use [...] (HCC) documented in this encounter Care Teams Tongue Trimmer Relationship Specialty Start Date End Date Pao Macias APRN, DENITRATOR OPERATOR [address] [facility] [place] [address] PCP - General Advanced Practice Nurse 07/15/22 Mehdi Lewis MD [address] [place] [address] Consulting Physician Oncology 08/28/23 documented as of this encounter
--- OUTSIDE RECORDS SUMMARY | 2024-11-29 07:09 | XMS_ITS | Encounter Summary ---
Author Organization [facility] Address [address] [place] [address] Phone Care Team Providers Care Singing Teacher Name Role Phone Pao Macias APRN, CONGRESSIONAL REPRESENTATIVE Primary Care Provide r Mehdi Lewis MD Unavailable [phone] Reason for Visit * Reason Comments Medication Refill Encounter Details Date Type Department Care Team (Late st Contact Info) Description 10/30/2022 Refill [facility] [address] [address] Mehdi Lewis MD [address] [place] [phone] Medication Refill Social History Tobacco Use [...] (HCC) documented in this encounter Care Teams Singing Teacher Relationship Specialty Start Date End Date Pao Macias APRN, CONGRESSIONAL REPRESENTATIVE [address] [place] [address] PCP - General Advanced Practice Nurse 07/15/22 Mehdi Lewis MD [address] [place] [address] Consulting Physician Oncology 08/28/23 documented as of this encounter
--- OUTSIDE RECORDS SUMMARY | 2024-11-29 07:09 | XMS_ITS | Encounter Summary ---
Author Organization [facility] Address [address] [place] [address] Phone Care Team Providers Care Cut To Length Operator Name Role Phone Pao Macias APRN, THREAD TOOL GRINDER SET UP OPERATOR Primary Care Provide r Mehdi Lewis MD Unavailable Reason for Visit * Reason Comments Medication Refill Encounter Details Date Type Department Care Team (Late st Contact Info) Description 08/13/2022 [facility]ill [facility] [address] [phone] Mehdi Lewis MD [address] [place] [phone] Medication Refill Social History Tobacco Use [...] (HCC) documented in this encounter Care Teams Cut To Length Operator Relationship Specialty Start Date End Date Pao Macias APRN, [place] [address] [place] [address] PCP - General Advanced Practice Nurse 07/15/22 Mehdi Lewis MD [address] [place] [address] Consulting Physician Oncology 08/28/23 documented as of this encounter
--- OUTSIDE RECORDS SUMMARY | 2024-11-29 07:10 | XMS_ITS | Encounter Summary ---
Author Organization [facility] Address [address] [place] [address] Care Team Providers Care Grocery Store Bagger Name Role Phone Pao Macias [facility] Primary Care Provider + Krystle Devine [facility] Primary Care Provider + Leonardo Crespo MD Primary Care Provider [phone] Encounter Details Date Type Department Care Team (Late st Contact Info) Description 10/17/2022 Therapy Plan [facility] [address] [place] [address] Pao Macias [facility] [address] [place] [id number] Social History Tobacco Use Types Packs/Day Years [...] place to sleep or slept in a detention (including now)? No 04/19/2022 Education Answer Date [...] Assessment Author Status No 04/19/2022 2:00 PM CHROME TANNER Activ e * RETIRED Are you blind or do you have serious difficulty seeing, even when wearing glasses? Answer Date of Assessment Author Status No 04/19/2022 2:00 PM CHROME TANNER Activ e * Do you have serious [...] Description 01/17/2025 8:50 AM CDT Laboratory Only [facility] [id number] [place] [address] 01/24/2025 9:20 AM CHROME TANNER Office Visit [facility] Internal Medicine [facility] [address] [place] [address] [place] [address] [facility] [address] [place] [address] 03/21/2025 1:00 PM CHROME TANNER Office Visit [facility] Multispecialty Care - [address], [address] [place] [address] Zulema Briseno MD [address] [place] [address] documented as of this encounter Visit Diagnoses Not on filedocumented in this encounter Care Teams Grocery Store Bagger Relationship Specialty Start Date End Date Pao Macias [facility] PCP - General Nurse Practitioner Family 11/12/1910/20 Krystle Devine, [facility] PCP - General Nurse Practitioner Family 10/21/2208/20 [place] [address] [facility] [address] [place] [address] PCP - General INTERNAL MEDICINE 09/17/24 documented as of this encounter
--- OUTSIDE RECORDS SUMMARY | 2024-11-29 07:10 | XMS_ITS | Encounter Summary ---
Author Organization [facility] Address [address] [place] [address] Phone Care Team Providers Care Semi Conductor Assembler Name Role Phone Pao Macias APRN, PRACTICE OFFICE ASSOCIATE Primary Care Provide r Mehdi Lewis MD Unavailable [phone] Reason for Visit * Reason Comments Medication Refill Encounter Details Date Type Department Care Team (Late st Contact Info) Description 03/05/2023 Refill [facility] [address] [phone] Mehdi Lewis MD [address] [place] [phone] Medication Refill Social History Tobacco Use [...] if appropriate. Follow up appointment as needed MAN documented in this encounter Plan of Treatment Not on file documented as of this encounter Visit Diagnoses Diagnosis Cirrhosis of liver with ascites, unspecified hepatic cirrhosis type (HCC) documented in this encounter Care Teams Semi Conductor Assembler Relationship Specialty Start Date End Date Pao Macias APRN, PRACTICE OFFICE ASSOCIATE [address] [place] [address] PCP - General Advanced Practice Nurse 07/15/22 Mehdi Lewis MD [address] [place] [address] Consulting Physician Oncology 08/28/23 documented as of this encounter
--- OUTSIDE RECORDS SUMMARY | 2024-11-29 07:10 | XMS_ITS | Clinical Summary ---
Author Organization [facility] Address [address] [place] [address] Care Team Providers Care Loading Machine Operator Helper Name Role Phone Lucio Chandler MD Primary Care Provider [phone] Allergies Active Allergy Reactions Criticality Noted Date Comments Neomycin-Bacitracin Zn-Polymyx Unknown 08/28 Medications levothyroxine (SYNTHROID) 125 MCG tablet Take 1 tablet (125 mcg total) by mouth daily. 02/02/20 22 Active Blood Pressure Monitoring KitIndications: Elevated blood pressure reading without diagnosis of hypertension 1 Application by Does not apply route daily. 1 kit 04/28/19 23 Active omeprazole (PRILOSEC) 20 MG capsule Take 2 capsules (40 mg total) by mouth daily. 10/11/19 23 Active atorvastatin (LIPITOR) 40 MG tabletIndicatio ns:Stroke (cerebrum) (CMS/HCC HHS/HCC) Take 1 tablet (40 mg total) by mouth nightly at bedtime. 90 tablet 1 09/07/19 25 Active folic acid (FOLVITE) 1 MG tabletIndicatio ns:Medicine refill Take 1 tablet (1 mg total) by mouth daily. 90 tablet 10/09/19 25 Active aspirin 81 MG chewable tablet Chew 1 tablet (81 mg total) by mouth daily. Active Vitamin D3 (VITAMIN D) 50 mcg tabletIndicatio ns:Vitamin D deficiency Take 1 tablet (50 mcg total) by mouth daily. 90 tablet 1 10/26/19 25 Active tamsulosin (FLOMAX) 0.4 MG CapIndications: Male erectile disorder of organic origin Take 1 capsule (0.4 mg total) by mouth nightly at bedtime. 30 capsule 11/05/19 25 Active tamsulosin (FLOMAX) 0.4 MG CapIndications: Male erectile disorder of organic origin Take 1 capsule (0.4 mg total) by mouth daily. 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/03/2005 06/05/2023 Encounters Date Type Department Care Team Description 10/25/2024 Results Follow-Up [facility] [address] [phone] Lucio Chandler MD PROSTATE SPECIFIC ANTIGEN,SCREENING, CBC W/DIFF AUTOMATED, TSH W/REFLEX, Additional followed-up results: 3 10/24/2024 12:13 PM CDT - 10/24/2024 11:59 PM CDT Hospital Encounter [facility] [address] [place] [id number] Lucio Chandler MD Discharge Disposition: Home or Self Care (Routine Discharge) 10/24/2024 9:00 AM CDT Laboratory Only [facility] [address] [phone] Lucio Chandler MD 10/24/2024 8:20 AM CDT Office Visit [facility] [address] [phone] Lucio Chandler MD New Patient (New patient transfer patient follow up medication refill establish care ) 10/24/2024 Travel 10/08/2024 Orders Only [facility] [address] [phone] Lucio Chandler MD 09/26/2024 10:00 AM CDT Telephone [facility] on [address] [address] Zulema Solorio MD Holter Monitor 09/26/2024 7:53 AM CDT - 09/26/2024 11:59 PM CDT Hospital Encounter [facility] [address] [place] [address] Zulema Solorio MD Discharge Disposition: Home or Self Care (Routine Discharge) 09/26/2024 Travel 09/25/2024 Results Follow-Up [address], [address] [place] [address] Zulema Solorio MD US CAROTID DUPLEX АНДРЕЙ, USE ECHOCARDIOGRAM 09/24/2024 Scan [facility] INFO SRVCS Scanned, [facility] 09/23/2024 11:38 AM CDT - 09/23/2024 11:59 PM CDT Hospital Encounter [facility] [address] [place] [address] Zulema Solorio MD Discharge Disposition: Home or Self Care (Routine Discharge) 09/23/2024 Travel 09/13/2024 8:20 AM CDT Office Visit [address], [address] [place] [phone] Zulema Solorio MD New Patient (Stroke ) 09/13/2024 Travel from Last 3 Months Immunizations Immunization Administration Dates Next Due FLUAD (IIV, Trivalent, 0.5 M L Pre-filled Syringe) 12/13/2023 Influenza (Generic) 02/06/2023 Influenza Adult (Generic) 01/19/2022,05/2020,12/27/2019,2018,11/17/2012 PFIZER COVID-19 (ORIGINAL FORMULATION, PURPLE CAP) mRNA, LNP-S, PF, 30 MCG/0.3 ML DOSE 07/09/2020,06/16/2020 Family History Medical History Relation Comments Defects Father Cancer Father melanoma, back Stent Cardiac Mother [...] Date Recorded Patient Health Questionnaire-2 Score 0 09/13/2024 Hunger Vital Sign Answer Date Recorded Within [...] place to sleep or slept in a residential (including now)? No 04/19/2022 Education Answer Date [...] Sign Reading Time Taken Comments Blood Pressure 110/74 10/24/2024 8:17 AM CDT Pulse 62 10/24/2024 8:17 AM CDT Temperature 36.4 C (97.5 F) 10/24/2024 8:17 AM CDT Respiratory Rate 18 10/24/2024 8:17 AM CDT Oxygen Saturation 98% 10/24/2024 8:17 AM CDT Inhaled Oxygen Concentration - - Weight 61.1 kg (134 lb 9.6 oz) 10/24/2024 8:17 A M CDT Height 182.9 cm (6') 10/24/2024 8:17 AM CDT Body Mass Index 18.26 10/24/2024 8:17 AM CDT Plan of Treatment Upcoming Encounters Date Type Department Care Team (Late st Contact Info) Description 01/17/2025 8:50 AM CDT Laboratory Only [facility] Medical [facility] [address] [place] [address] 01/24/2025 9:20 AM UNHAIRING INSPECTOR Office Visit [facility] Medical [facility] Medicine [facility] [id number] [place] [phone] [place] [address] [facility] [address] [place] [address] 03/21/2025 1:00 PM UNHAIRING INSPECTOR Office Visit [facility] Medical [facility] [address] [facility], [address] [place] [phone] Zulema Solorio MD [address] [place] [address] Health Maintenance Due Date Last Done Comments Pneumococcal Vaccine: 50+ Years (1 of 2 - PCV) 1977 COVID-19 Vaccine ( - season) 2024 12/13/2023, 01/20/2023, 07/09/2020, Additional history exists Annual Medicare Wellness Visit 02/01/2025 Postponed from 06/10/2023 (Future Appointment) DTaP, Tdap and Td Vaccines (1 - Tdap) 08/01/2025 Postponed from 1977 (Going to Outside Clinic) RSV Immunization or 60+ Years (1 - Risk 60-74 years 1-dose series) 08/01/2025 Postponed fro m 2018 (Going to Outside Clinic) Zoster Vaccines (1 of 2) 08/01/2025 Pos tponed from 2008 (Going to Outside Clinic) Colorectal Cancer Screening Colonoscopy (10 Years) 10/10/2032 10/10/2022 AAA SCREENING Completed 07/12/2022, 06/15/2022 Hepatitis C Completed 09/15/2022 PHQ-2 (Physician [place]) Completed 09/13/2024 Meningococcal B Vaccine Aged Out No l onger eligible based on patient's age to complete this topic Meningococcal Vaccine Aged Out No danitza fanta eligible based on patient's age to complete this topic RSV Immunizations Under 20 Months Aged Out No longer eligible based on patient's age to complete this topic Procedures Procedure Name Priority Date/Time Associated Diagnosis Comments EVENT RECORDER (ECG) UP TO 30 DAYS COMPLETE Routine 11/06/2024 11:01 AM CDT Ischemic stroke ([facility]) COLLECTION VENOUS BLOOD VENIPUNCTURE Routine 10/24/2024 9:20 AM CDT Vitamin D deficiency Dyslipidemia Acquired hypothyroidism Cirrhosis of liver with ascites, unspecified hepatic cirrhosis type (CMS/HCC HHS/HCC) History of ischemic stroke History of throat cancer Gastroesophageal reflux disease, unspecified whether esophagitis present Benign prostatic hyperplasia without lower urinary tract symptoms Screening PSA (prostate specific antigen) VITAMIN D, 25 OH Routine 10/24/2024 9:17 AM CDT Vitamin D deficiency COMPREHENSIVE METABOLIC PANEL Routine 10/24/2024 9:17 AM CDT Dyslipidemia LIPID PANEL Routine 10/24/2024 9:17 AM CDT Dyslipidemia TSH W/REFLEX Routine 10/24/2024 9:17 AM CDT Acquired hypothyroidism CBC W/DIFF AUTOMATED Routine 10/24/2024 9:17 AM CDT Acquired hypothyroidism Cirrhosis of liver with ascites, unspecified hepatic cirrhosis type (CMS/HCC HHS/HCC) History of ischemic stroke History of throat cancer Dyslipidemia Gastroesophageal reflux disease, unspecified whether esophagitis present Benign prostatic hyperplasia without lower urinary tract symptoms Vitamin D deficiency PROSTATE SPECIFIC ANTIGEN,SCREENING Routine 10/24/2024 9:17 AM CDT Screening PSA (prostate specific antigen) USE ECHOCARDIOGRAM Routine 09/26/2024 8: 43 AM CDT Ischemic stroke (CMS/HCC HHS/HCC) US CAROTID DUPLEX АНДРЕЙ Routine 09/23/2024 12:32 PM CDT Ischemic stroke (CMS/HCC HHS/HCC) COLONOSCOPY GENERIC (SCAN ORDER) 10/10/2022 HEP C SCANNED ORDERS Routine 09/15/2022 PET EYE TO THIGH [id number] Routine 07/12/2022 5:30 PM CDT Other ascites Splenomegaly Abnormal CT of the abdomen from Last 3 Months or Most Recently Relevant to Health Maintenance Results * EVENT RECORDER (ECG) UP TO 30 DAYS COMPLETE (11/06/2024 11:01 AM CDT) Impressions [facility] - 11/06/2024 11:01 AM CDT [place], [place] [address] MOBILE [employer]ARDI[employer]W LABORER REPORT Patient Name: Ranulfo Arboleda : 1960 Recruiting Coordinator Date: 10/03/2024 End Date: 11/01/2024 Performed At: [place], [place] Interpreting Drag Car Racer: Aj Campos MD PCP: LUCIO CHANDLER MD Ordering Provider: Zulema Solorio MD INDICATION: Stroke DURATION OF MONITORIN days NUMBER OF TRANSMISSIONS: 30 (25 auto transmissions, 5 manual, 0 periodic) INTERPRETATION: A 30-day mobile cardiac secured entrance monitor analyzed. Interpretable data was 29 days, 13 hours and 10 minutes (>99% of monitoring period). The baseline rhythm was sinus rhythm. There was not atrial fibrillation or atrial flutter observed. . A minimum heart rate was 47 bpm on 10/30/2024 at 12:32 AM. A maximum heart rate in sinus rhythm was 112 bpm on 10/20/2024 at 5:45 PM. There were 0 pauses observed. The manual triggered episodes had no reported symptoms correlated with sinus bradycardia and sinus rhythm. The auto triggered episodes were for a ventricular couplet, supraventricular couplet, isolated premature ventricular complexes, supraventricular bigeminy, brief nonsustained supraventricular runs, ventricular triplet, and sinus tachycardia. CONCLUSION: 30-day mobile cardiac telemetry was only notable for occasional bouts of nonsustained supraventricular tachycardia. There is no atrial fibrillation or flutter seen. Interpreting Drag Car Racer: Dr. Aj Campos us Zulema Solorio MD CV VASCULAR ORDERABLES F inal Result [facility] * TSH W/REFLEX (10/24/2024 9:17 AM CDT) TSH 2.953 0.358 - 3.74 uIU/ML 10/24/2024 1:12 PM CDT [facility] Comment: HIGH DOSES OF BIOTIN MAY INTERFERE WITH THIS TEST RESULT. CORRELATION TO CLINICAL HISTORY AND PRESENTATION RECOMMENDED. FREE T4 NOT INDICATED 10/24/2024 9:17 AM CDT Lucio Chandler MD LABORATORY Final Resul t Performing Organization Address [facility] Co de Phone Number [facility] [address] [place] [address], [place] [phone] * PROSTATE SPECIFIC ANTIGEN,SCREENING (10/24/2024 9:17 AM CDT) PSA 0.76 <4.00 NG/ML 10/24/2024 1:16 PM CDT [facility] Comment: Test was performed using the Siemens method. Results obtained with other assay methods or kits cannot be used interchangeably with results obtained by the Siemens method. 10/24/2024 9:17 AM CDT us Lucio Chandler MD LABORATORY Final Resul t Performing Organization Address City/[facility]/ZIP Co de Phone Number [facility] [address] [place] [address], [place] [phone] * (ABNORMAL) COMPREHENSIVE METABOLIC PANEL (10/24/2024 9:17 AM CDT) GLUCOSE 93 70 - 99 MG/DL 10/24/2024 1:12 PM CDT [facility] BUN 26(H) 7 - 18 MG/DL 10/24/2024 1:12 PM CDT [facility] CREATININE S/P/B 1.21 0.7 - 1.3 MG/DL 10/24/2024 1:12 PM [facility] SODIUM S/P/B 135(L) 136 - 145 MMOL/L 10/24/2024 1:12 PM [facility] POTASSIUM S/P/B 5.2(H) 3.5 - 5.1 MMOL/L 10/24/2024 1:12 PM [facility] CHLORIDE S/P/B 97(L) 100 - 108 MMOL/L 10/24/2024 1:12 PM [facility] CO2 29.9 21 - 32 MMOL/L 10/24/2024 1:12 PM [facility] CALCIUM S/P/B 9.3 8.5 - 10.1 MG/DL 10/24/2024 1:12 PM [facility] BILIRUBIN TOTAL S/P/B 1.0 0.2 - 1.2 MG/DL 10/24/2024 1:12 PM [facility] TOTAL PROTEIN S/P/B 7.1 6.4 - 8.2 G/DL 10/24/2024 1:12 PM [facility] ALBUMIN S/P/B 4.1 3.4 - 5.0 G/DL 10/24/2024 1:12 PM [facility] AST 30 15 - 37 U/L 10/24/2024 1:12 PM [facility] ALT 39 16 - 60 U/L 10/24/2024 1:12 PM [facility] ALKALINE PHOSPHATASE S/P/B 74 50 - 136 U/L 10/24/2024 1:12 PM [facility] ANION GAP 8.1 5 - 15 MMOL/L 10/24/2024 1:12 PM [facility] BUN CREATININE RATIO 21.5 6 - 26 10/24/2024 1:12 PM CDT [facility] A/G RATIO 1.4 1.0 - 2.0 RATIO 10/24/2024 1:12 PM CDT [facility] GFR ESTIMATE 66(L) >90 ML/MIN/1.7 3 M2 10/24/2024 1:12 PM CDT [facility] Comment: NOTE: eGFR is not calculated for patients <18 years of age. This is an estimated GFR calculation using the new CKD EPI creatinine equation without race and so does not require a correction factor for race. This estimated GFR should not be used for calculating drug doses. 10/24/2024 9:17 AM CDT Lucio Chandler MD LABORATORY Final Resul t [facility] [address] [place] [address], * LIPID PANEL (10/24/2024 9:17 AM CDT) CHOLESTEROL 118 <200.0 MG/DL 10/24/2024 1:12 PM CDT [facility] TRIGLYCERIDES 31 <150 MG/DL 10/24/2024 1:12 PM CDT [facility] HDL 63 >40.0 MG/DL 10/24/2024 1:12 PM T [facility] LDL (CALCULATED) 49 <100 MG/DL 10/25/19 25 1:12 PM T [facility] Comment:CALCULATED USING THE FRIEDEWALD EQUATION NON HDL CHOLESTEROL 55 <130 MG/DL 10/24 1:12 PM CDT [facility] CHOL/HDL RATIO 1.9 0.0 - 4.5 10/24/2024 1:12 PM T [facility] VLDL CALCULATION 6 5 - 55 MG/DL 10/24/2024 1:12 PM CDT [facility] LIPID INTERPRETATION 10/24/2024 1:12 PM CDT [facility] Comment: [facility] REPORT RECOMMENDATIONS: ADULT CHILD LOW RISK: CHOLESTEROL <200 <170 TRIGLYCERIDE <150 --- HDL >=60 --- LDL <100 <110 BORDERLINE: CHOLESTEROL 200-239 170-199 TRIGLYCERIDE 150-199 --- HDL 40-59 --- LDL 100-159 110-129 HIGH RISK: CHOLESTEROL >=240 >=200 TRIGLYCERIDE >=200 --- HDL <40 --- LDL >=160 >=130 10/24/2024 9:17 AM CDT us Lucio Chandler MD LABORATORY Final Resul t [facility] [address] [place] [id number], * (ABNORMAL) CBC W/DIFF AUTOMATED (10/24/2024 9:17 AM CDT) WBC 5.35 4.4 - 11.0 x10'3/uL 10/24/2024 12:55 PM CDT [facility] RBC 3.57(L) 4.50 - 5.90 x10'6/uL 10/24/2024 12:55 PM CDT [facility] HGB 11.1(L) 14.0 - 17.5 G/DL 10/24/2024 12:55 PM CDT [facility] HCT 32.6(L) 41.5 - 50.4 % 10/24/2024 12:55 PM CDT [facility] MCV 91.3 80.0 - 96.0 FL 10/24/2024 12:55 PM CDT [facility] MCH 31.1 26.5 - 31.4 PG 10/24/2024 12:55 PM CDT [facility] MCHC 34.0 31.9 - 34.8 G/DL 10/24/2024 12:55 PM T [facility] RDW 14.9(H) 12.3 - 14.3 % 10/24/2024 12:55 PM T [facility] PLT 133(L) 151 - 353 x10'3/uL 10/24/2024 12:55 PM T [facility] MPV 12.0(H) 9.7 - 11.9 FL 10/24/2024 12:55 PM T [facility] RBC MORPHOLOGY NORMAL 10/24/2024 12:55 PM T [facility] PLT MORPH. NORMAL 10/24/2024 12:55 PM T [facility] WBC MORPHOLOGY NORMAL 10/24/2024 12:55 PM T [facility] LYMPHOCYTES % 12.9(L) 15.8 - 45.0 % 10/24/2024 12:55 PM T [facility] NEUTROPHILS % 75.3(H) 42.1 - 71.9 % 10/24/2024 12:55 PM T [facility] MONOCYTES % 8.6 5.7 - 12.5 % 10/24/2024 12:55 PM T [facility] EOSINOPHILS 1.7 0.0 - 5.6 % 10/24/2024 12:55 PM T [facility] BASOPHILS 0.9 0.0 - 1.3 % 10/24/2024 12:55 PM T [facility] ABS. NEUTROPHILS 4.03 1.40 - 6.00 x10'3/uL 10/24/2024 12:55 PM CDT [facility] IMMATURE GRANS % 0.6(H) 0.0 - 0.5 % 10/24/2024 12:55 PM CDT [facility] ABS. LYMPHOCYTES 0.69(L) 0.80 - 4.70 x10'3/uL 10/24/2024 12:55 PM CDT [facility] 10/24/2024 9:17 AM CDT Lucio Chandler MD LABORATORY Final Resul t Performing Organization Address City/[facility] Co de Phone Number [facility] [address] [place] [address], * VITAMIN D, 25 OH (10/24/2024 9:17 AM CDT) VITAMIN D 25 HYDROXY S/P/B 58 30 - 100 NG/ML 10/24/2024 1:24 PM CDT [facility] Comment: INTERPRETATION DEFICIENT <20 INSUFFICIENT 20-29 SUFFICIENT 30-100 10/24/2024 9:17 AM CDT Lucio Chandler MD LABORATORY Final Resul t Performing Organization Address [facility] Co de Phone Number [facility] [address] [place] [address], [place] [phone] * USE ECHOCARDIOGRAM (09/26/2024 8:43 AM CDT) Anatomical Region Laterality Modality Cardiac Ultrasound 09/26/2024 8:04 AM CDT Narrative 09/28/2024 10:58 AM CDT JENNIFER GILMAN Pat.Name: Arboleda Ranulfo t Pat.ID: [id number] .Date: 09/26/2024 Refer.MD: Kelvin, [facility] Radiology Exam Time: 8:04:00 AM Study Type:OUTREACH Height: 71 in Weight: 145 lb BSA: 1.84 m2 Age: 3 1960,64Y Sex: M Sonogrphr: Lw Pat. Stat.:Outpatient Reason for Study:Stroke Procedures: 2D, M-mode, Doppler, Color Flow, Study performed at [place], [place] and interpreted by [facility]. ++++++++++++++++++++++++++++++++++++ SUMMARY: ++++++++++++++++++++++++++++++++++++ The left ventricular systolic function is normal. Estimated left ventricular ejection fraction is 55-60%. Left ventricular diastolic function is abnormal (grade 1 - impaired relaxation). Wall motion appears normal in all segments. Atrial septum appears intact but bubble study not performed. Aortic root is mildly dilated. The aortic root measures 4.1 cm. Mild tricuspid and mitral regurgitation. ++++++++++++++++++++++++++++++++++++ FINDINGS: ++++++++++++++++++++++++++++++++++++ LV: The left ventricular size is normal. The left ventricular systolic function is normal. Estimated left ventricular ejection fraction is 55-60%. There is no left ventricular hypertrophy. Left ventricular diastolic function is abnormal (grade 1 - impaired relaxation). WM: Wall motion appears normal in all segments. RV: The right ventricle size is normal. The right ventricular function appears normal. IVS: Asymmetric hypertrophy of the left ventricular basal septum is noted. LA: Left atrial size is normal. RA: Right atrial size is normal. Chiari network is incidentally noted. IAS: Atrial septum appears intact but bubble study not performed. GINGER: No evidence of pericardial effusion. AO: Aortic root is mildly dilated. The aortic root measures 4.1 cm. PA: Estimated right atrial pressure of 3 mmHg. SVn: Inferior vena cava is normal. AV: The aortic valve is trileaflet. No evidence of aortic valve stenosis. No evidence of aortic valve regurgitation. Mild calcification of aortic valve leaflets. MV: Mild mitral regurgitation. No evidence of mitral stenosis. Mildly calcified anterior and posterior mitral annulus. PV: Trace pulmonic regurgitation. No evidence of pulmonic valve stenosis. Pulmonic valve not well visualized. TV: Structurally normal tricuspid valve. Mild tricuspid regurgitation. Right ventricular systolic pressure is 32 mmHg. No evidence of tricuspid valve stenosis. <Electronic Signature> 09/28/2024 10:58 AM Claritza Hall M.D. Procedure Note Claritza Hall MD - 09/28/2024 JENNIFER OUTREACH Pat.Name: Ranulfo Arboleda Pat.ID: [id number] .Date: 09/26/2024 Refer.MD: Kelvin, [facility] Radiology Exam Time: 8:04:00 AM Study Type:OUTREACH Height: 71 in Weight: 145 lb BSA: 1.84 m2 Age: 3 1960,64Y Sex: M Sonogrphr: Pat. Stat.:Outpatient Reason for Study:Stroke Procedures: 2D, M-mode, Doppler, Color Flow, Study performed at [place], [place] and interpreted by [facility]. ++++++++++++++++++++++++++++++++++++ SUMMARY: ++++++++++++++++++++++++++++++++++++ The left ventricular systolic function is normal. Estimated left ventricular ejection fraction is 55-60%. Left ventricular diastolic function is abnormal (grade 1 - impaired relaxation). Wall motion appears normal in all segments. Atrial septum appears intact but bubble study not performed. Aortic root is mildly dilated. The aortic root measures 4.1 cm. Mild tricuspid and mitral regurgitation. ++++++++++++++++++++++++++++++++++++ FINDINGS: ++++++++++++++++++++++++++++++++++++ LV: The left ventricular size is normal. The left ventricular systolic function is normal. Estimated left ventricular ejection fraction is 55-60%. There is no left ventricular hypertrophy. Left ventricular diastolic function is abnormal (grade 1 - impaired relaxation). WM: Wall motion appears normal in all segments. RV: The right ventricle size is normal. The right ventricular function appears normal. IVS: Asymmetric hypertrophy of the left ventricular basal septum is noted. LA: Left atrial size is normal. RA: Right atrial size is normal. Chiari network is incidentally noted. IAS: Atrial septum appears intact but bubble study not performed. GINGER: No evidence of pericardial effusion. AO: Aortic root is mildly dilated. The aortic root measures 4.1 cm. PA: Estimated right atrial pressure of 3 mmHg. SVn: Inferior vena cava is normal. AV: The aortic valve is trileaflet. No evidence of aortic valve stenosis. No evidence of aortic valve regurgitation. Mild calcification of aortic valve leaflets. MV: Mild mitral regurgitation. No evidence of mitral stenosis. Mildly calcified anterior and posterior mitral annulus. PV: Trace pulmonic regurgitation. No evidence of pulmonic valve stenosis. Pulmonic valve not well visualized. TV: Structurally normal tricuspid valve. Mild tricuspid regurgitation. Right ventricular systolic pressure is 32 mmHg. No evidence of tricuspid valve stenosis. <Electronic Signature> 09/28/2024 10:58 AM Claritza Hall M.D. us Zulema Solorio MD ECHO Final Re sult * US CAROTID DUPLEX АНДРЕЙ (09/23/2024 12:32 PM CDT) Anatomical Region Laterality Modality NA Ultrasound 09/23/2024 1:05 PM CDT Impressions 09/23/2024 1:10 PM CDT IMPRESSION: 1. No hemodynamically significant stenosis of the right carotid bulb or proximal right internal carotid artery. 2. Large calcified shadowing plaque within the left carotid bulb limits evaluation. Follow-up with CTA of the neck. Ordered By: ZULEMA SOLORIO Interpreted By: Ruben Whittington, 09/23/2024 1:05 PM Narrative 09/23/2024 1:10 PM CDT [facility] [address] [place] [address] IMAGING STUDIES:US CAROTID DUPLEX АНДРЕЙ DATE: 09/23/2024 11:55 AM INDICATION: stroke. . COMPARISON: No comparisons. . TECHNIQUE: Examination performed by carpet installer using grayscale with color flow and spectral Doppler. Selected images submitted for interpretation. Worksheet completed. FINDINGS: RIGHT CAROTID BIFURCATION: Peak systolic velocities (cm/s) CCA 87, ICA 97, ECA 79, ICA/CCA 1.3. Moderate amount of calcified plaque.. There is no evidence to suggest the presence of a hemodynamically significant stenosis within the proximal right internal carotid artery or carotid bulb. (less than 50% diameter stenosis). LEFT CAROTID BIFURCATION: Peak systolic velocities (cm/s) CCA 221, ICA 125, ECA 81, ICA/CCA 1.7. Large calcified shadowing plaque within the left carotid bulb limits evaluation.. Possible greater than 70% stenosis.. Follow-up with CTA of the neck.. VERTEBRAL ARTERIES: Antegrade flow present in both vertebral arteries. Stenoses evaluated using criteria similar to NASCET. Procedure Note Jayy Whittington MD - 09/23/2024 [facility] [address] [place] [address] IMAGING STUDIES:US CAROTID DUPLEX BILDATE: 09/23/2024 11:55 AM INDICATION: stroke. . COMPARISON: No comparisons. . TECHNIQUE: Examination performed by carpet installer using grayscale withcolor flow and spectral Doppler. Selected images submitted forinterpretation. Worksheet completed. FINDINGS: RIGHT CAROTID BIFURCATION: Peak systolic velocities (cm/s) CCA 87, ICA 97, ECA 79, ICA/CCA 1.3. Moderate amount of calcified plaque.. There is no evidence to suggest the presence of a hemodynamicallysignificant stenosis within the proximal right internal carotid artery orcarotid bulb. (less than 50% diameter stenosis). LEFT CAROTID BIFURCATION: Peak systolic velocities (cm/s) CCA 221, ICA 125, ECA 81, ICA/CCA1.7. Large calcified shadowing plaque within the left carotid bulb limitsevaluation.. Possible greater than 70% stenosis.. Follow-up with CTA of the neck.. VERTEBRAL ARTERIES: Antegrade flow present in both vertebral arteries. Stenoses evaluated using criteria similar to NASCET. IMPRESSION: 1. No hemodynamically significant stenosis of the right carotid bulb orproximal right internal carotid artery. 2. Large calcified shadowing plaque within the left carotid bulb limitsevaluation. Follow-up with CTA of the neck. Ordered By: ZULEMA SOLORIO Interpreted By: Ruben Whittington, 09/23/2024 1:05 PM Zulema Solorio MD ULTRASOUND Final Re sult * COLONOSCOPY GENERIC (10/10/2022) 10/10/2022 [facility] Scanned SCANNING Final Resu lt * HEP C SCANNED ORDERS (09/15/2022) [facility] Scanned SCANNING Final Resu lt HS ONBASE * PET EYE TO THIGH INIT [...] the oropharynx or left neck. Ordered By: BRITANY MACIAS Interpreted By: Barbara Guy MD, 07/14/2022 2:29 PM Narrative 07/14/2022 2:55 PM CDT EXAMINATION: TUMOR FDG-PET/CT IMAGING DATE OF STUDY: 07/12/2022 SCANNER: [facility] RADIOPHARMACEUTICAL: 12.7 mCi F-18 Fluorodeoxyglucose (FDG) i.v. [...] obtained. The study was interpreted on the [employer] workstation. The mean liver SUV (reported for quality assurance manager purposes) is 2.0. The total scanned area [...] FDG-PET/CT IMAGING DATE OF STUDY: 07/12/2022 SCANNER: [facility] RADIOPHARMACEUTICAL: 12.7 mCi F-18 Fluorodeoxyglucose (FDG) i.v.Injection [...] of FDG, was 105 mg/dL. MD-Gastroview was notgiven orally. After intravenous administration of FDG, noncontrast CTimages were obtained for attenuation correction and for fusion withemission PET images to allow for anatomical localization of PET findings.Emission PET images were then obtained. The study was interpreted on [employer] workstation. The mean liver SUV (reported for [...] the oropharynx or left neck. Ordered By: BRITANY MACIAS Interpreted By: Barbara Guy MD, 07/14/2022 2:29 PM Britany Macias OXYACETYLENE CUTTER-BC PET Final Re sult from Last 3 Months or Most Recently Relevant to Health Maintenance Insurance MEDICARE [facility] Advance Directives * Full Code (Latest Code Status on File) Date Activated Date Inactivated Comments 04/19/2022 10:57 AM 04/22/2022 6:08 PM Care Teams Loading Machine Operator Helper Relationship Specialty [place] [id number] [address] PCP - General INTERNAL MEDICINE 09/17/24
--- OUTSIDE RECORDS SUMMARY | 2024-11-29 07:10 | XMS_ITS | Encounter Summary ---
Author Organization [facility] Address [address] [place] [address] Care Team Providers Care Hand Mixer Name Role Phone Krystle Devine [facility] Primary Care Provider + Leonardo Crespo MD Primary Care Provider [phone] Encounter Details Date Type Department Care Team (Late st Contact Info) Description 12/12/2022 Therapy Plan [facility] One Day Services [address] [place] [address] Krystle Devine, [facility] [address] [address] Social History Tobacco Use Types Packs/Day Years [...] place to sleep or slept in a halfway (including now)? No 04/19/2022 Education Answer Date [...] Assessment Author Status No 04/19/2022 2:00 PM SHIPPING TECHNICIAN Activ e * RETIRED Are you blind or do you have serious difficulty seeing, even when wearing glasses? Answer Date of Assessment Author Status No 04/19/2022 2:00 PM SHIPPING TECHNICIAN Activ e * Do you have [...] 2:00 PM Toyin Lemon RN Active * Calculated C-SSRS Risk Score (Lifetime/Recent) Answer Date of Assessment Author Status No Risk Indicated 12/12/2022 10:37 AM Shaun Smith RN Active * Pierce Suicide Severity Rating Scale (Screener/Recent Self-Report) Question Answer Date of Assessment Author Status 1. Wish to be (Past 1 Month) No 12/12/2022 10:37 AM Farida Smith RN Active 2. Non-Specific Active Suicidal Thoughts (Past 1 Month) No 12/12/2022 10:37 AM Farida Smith RN Active 6. Suicidal Behavior (Lifetime) No 12/12/2022 10:37 AM Farida Smith RN Active documented as of this encounter Mental Status * Because of a physical, mental, or emotional condition, do you have serious difficulty concentrating, remembering, or making decisions? Answer Entry Date Author Status No 04/19/2022 2:00 PM Tyoin Lemon RN Active documented in this encounter Plan of Treatment Upcoming Encounters Date Type Department Care Team (Late st Contact Info) Description 01/17/2025 8:50 AM CDT Laboratory Only [facility] Medical [facility] Family & Internal Medicine [address] [address] 01/24/2025 9:20 AM SHIPPING TECHNICIAN Office Visit [facility] Family & Internal Medicine - English [address] [place] [phone] [place] [address] [facility] [address] [place] [address] 03/21/2025 1:00 PM SHIPPING TECHNICIAN Office Visit [facility] Multispecialty Care - [facility] [address] [facility], [address] [place] [phone] Zulema Briseno MD [address] [place] [address] documented as of this encounter Visit Diagnoses Diagnosis Ascites of liver- Primary documented in this encounter Care Teams Hand Mixer Relationship Specialty Start Date End Date Krystle Devine, [facility]- PCP - General Nurse Practitioner Family 10/21/2208/20 [place] [address] [facility] [address] [place] [address] PCP - General INTERNAL MEDICINE 09/17/24 documented as of this encounter
--- OUTSIDE RECORDS SUMMARY | 2024-11-29 07:10 | XMS_ITS | Encounter Summary ---
Author Organization [facility] Address [address] [place] [address] Care Team Providers Care Train Brake Operator Name Role Phone ErinmackenzieWili epsteinory [facility] Primary Care Provider + Krystle Devine [facility] Primary Care Provider + Leonardo Crespo MD Primary Care Provider [phone] Encounter Details Date Type Department Care Team (Late st Contact Info) Description 10/05/2022 [id number] Message Enc [facility] Medical Group Family & Internal Medicine [address] [place] [address] [address] René [facility] Provider Appointment Social History Tobacco Use Types [...] place to sleep or slept in a long-term (including now)? No 04/19/2022 Education Answer Date [...] Assessment Author Status No 04/19/2022 2:00 PM DISPUTE SPECIALIST Activ e * RETIRED Are you blind or do you have serious difficulty seeing, even when wearing glasses? Answer Date of Assessment Author Status No 04/19/2022 2:00 PM DISPUTE SPECIALIST Activ e * Do you have serious [...] Description 01/17/2025 8:50 AM CDT Laboratory Only [facility] Family & Internal Medicine [address] [phone] 01/24/2025 9:20 AM DISPUTE SPECIALIST Office Visit [facility] Family & Internal Medicine [address] [place] [address] [address] [place] [address] [facility] [address] [place] [address] 03/21/2025 1:00 PM DISPUTE SPECIALIST Office Visit [facility] Multispecialty Care - [address], [address] [place] [address] Zulema Briseno MD [address] [place] [address], [place] [address] documented as of this encounter Visit Diagnoses Not on filedocumented in this encounter Care Teams Train Brake Operator Relationship Specialty Start Date End Date Pao Macias [facility] PCP - General Nurse Practitioner Family 11/12/1910/20 Krystle Devine, [facility] PCP - General Nurse Practitioner Family 10/21/2208/20 [place] [address] [address] PCP - General INTERNAL MEDICINE 09/17/24 documented as of this encounter
--- OUTSIDE RECORDS SUMMARY | 2024-11-29 07:10 | XMS_ITS | Encounter Summary ---
Author Organization [facility] Address [address] [place] [address] Care Team Providers Care Tailer Off Name Role Phone Pao Macias [facility] Primary Care Provider + Krystle Devine [facility] Primary Care Provider + Leonardo Crespo MD Primary Care Provider [phone] Encounter Details Date Type Department Care Team (Late st Contact Info) Description 10/17/2022 Hospital Orders Only [facility] One Day Services [address] [place] [address] Pao Macias [facility] [address] [place] [phone] Social History Tobacco Use Types Packs/Day Years [...] place to sleep or slept in a [place] [facility] [place] (including now)? No 04/19/2022 Education Answer Date [...] Assessment Author Status No 04/19/2022 2:00 PM BOULEVARD GLASSWARE REPLACER Activ e * RETIRED Are you blind or do you have serious difficulty seeing, even when wearing glasses? Answer Date of Assessment Author Status No 04/19/2022 2:00 PM BOULEVARD GLASSWARE REPLACER Activ e * Do you have serious [...] Description 01/17/2025 8:50 AM CDT Laboratory Only [facility] Family & Internal Medicine [id number] [place] [address] 01/24/2025 9:20 AM BOULEVARD GLASSWARE REPLACER Office Visit [facility] Family & Internal Medicine [facility] [address] [place] [phone] [place] [address] [facility] [address] [place] [address] 03/21/2025 1:00 PM BOULEVARD GLASSWARE REPLACER Office Visit [facility] Multispecialty Care - [address], [address] [place] [address] Zulema Briseno MD [address] [place] [address] documented as of this encounter Visit Diagnoses Not on filedocumented in this encounter Care Teams Tailer Off Relationship Specialty Start Date End Date Pao Macias [facility] PCP - General Nurse Practitioner Family 11/12/1910/20 [facility] - General Nurse Practitioner Family 10/21/2208/20 [place] [address] [address] PCP - General INTERNAL MEDICINE 09/17/24 documented as of this encounter
--- OUTSIDE RECORDS SUMMARY | 2024-11-29 07:11 | XMS_ITS | Encounter Summary ---
Author Organization [facility] Address [address] [place] [address] Phone Care Team Providers Care Chicken Vaccinator Name Role Phone Pao Macias APRN, TERMITE HELPER Primary Care Provide r Mehdi Lewis MD Unavailable Reason for Visit * Reason Comments Medication Refill Encounter Details Date Type Department Care Team (Late st Contact Info) Description 08/27/2023 Refill [facility] [address] [address] Mehdi Lewis MD [address] [place] [phone] Medication Refill Social History Tobacco Use [...] (HCC) documented in this encounter Care Teams Chicken Vaccinator Relationship Specialty Start Date End Date Pao Macias APRN, TERMITE HELPER [address] [facility] [place] [address] PCP - General Advanced Practice Nurse 07/15/22 Mehdi Lewis MD [address] [place] [address] Consulting Physician Oncology 08/28/23 documented as of this encounter
--- OUTSIDE RECORDS SUMMARY | 2024-11-29 07:11 | XMS_ITS | Clinical Summary ---
Author Organization [facility] Address [address] [place], [facility] [address] [place] [address] Phone Care Team Providers Care Chaser Tar Name Role Phone Pao Macias APRN, CNP Primary Care Provide r Mehdi Lewis MD Unavailable [phone] Allergies Active Allergy Reactions Criticality Noted Date [...] Encounters Date Type Department Care Team Description 10/04/2024 Refill [facility] [address] [address] Mehdi Lewis MD Medication Refill [...] (1 of 2 - PCV) 1977 Cologuard 06/10/2003 Immunochemical Fecal Occult Blood 06/10/2003 Zoster Immunization (1 of 2) 2008 PSA Discussion 2013 Hepatitis B Immunization (1 of 3 - Risk 3-dose series) 2018 Respiratory Syncytial Virus (RSV) Immunization (Adult) (1 - Risk 60-74 years 1-dose series) 2018 Influenza Immunization (#1) 2024 11/0 04/2021, 01/19/2022, 01/20/2021, Additional history exists SARS-COV-2 Immunization ( - season) 2024 07/09/2020, 06/16/2020 Colonoscopy 10/10/2032 10/10/2022 Colorectal Cancer Screening 10/10/2032 Human Papillomavirus (HPV) Immunization Aged Out No longer eligible based on patient's age to complete this topic Meningococcal Immunization (ACWY) Aged Out No longer eligible based on patient's age to complete this topic Rotavirus Immunization Aged Out No lo nger eligible based on patient's age to complete this topic Insurance [employer] Care Teams Chaser Tar Relationship Specialty Start Date End Date Pao Macias APRN, GAS PIT WORKER [address] [place] [address] PCP - General Advanced Practice Nurse 07/15/22 Mehdi Lewis MD [address] [place] [phone] Consulting Physician Oncology 08/28/23
--- OUTSIDE RECORDS SUMMARY | 2024-11-29 07:11 | XMS_ITS | Clinical Summary ---
Author Organization [facility] Address [facility] [place] [place] [address] Care Team Providers Care Montessori Program Director Name Role Phone Krystle Devine DOCUMENT REVIEWER Primary Care Provider [phone] Luz Marina Mcnamara Unavailable [phone] Allergies Active Allergy Reactions Criticality Noted Date [...] total) by mouth daily 90 tablet 3 5 Active Active Problems Problem Noted Date Diagnosed [...] of Binge Drinking Not on file 05/19 Sex and Gender Information Value Date Recorded Sex Assigned at Not on file Legal Sex Male 2:23 AM BIOINFORMATICS ENGINEER Gender Identity Not on file Sexual Orientation Not on file Obstetrics History Last Filed Vital Signs Vital Sign Reading Time Taken Comments Blood Pressure 127/86 08/06/2014 2:40 PM CDT Pulse - - Temperature - - Respiratory Rate - - Oxygen Saturation - - Inhaled Oxygen Concentration - - Weight 64.9 kg (143 lb) 07/09/2024 10:35 AM CDT Height 175.3 cm (5' 9) 06/07/2023 10:16 AM CDT Body Mass Index 21.12 06/07/2023 10:16 AM CDT Plan of Treatment [...] 2008 Well Visit 65+ 06/10/2023 Covid-19 Vaccine (3 - 2024-2 6 season) 2024 07/09/2020, 06/16/2020 Influenza Vaccine (#1) 2024 , 12/27/2019, 12/19/2018, Additional history exists Insurance MEDICARE [facility] [employer] OPEN ACCESS MEDICARE [facility] Care Teams Montessori Program Director Relationship Specialty [place] [address] [address], [place] [address] PCP - General Family Medicine 11/17/23 Luz Marina Mcnamara PA [address] [facility] DEPT OTOLARYNGOLOGY, [address] [address] Physician Casing Crew Pusher Physician Casing Crew Pusher 01/26/24
[2024-11-29 08:05] LABS: Hematocrit 35.3 % (42.0-52.0); Hemoglobin 11.2 g/dL (14.0-18.0); Immature Platelet Fraction Pct 6.7 % (0.9-11.2); Mean Corpuscular HGB Conc 31.7 g/dl (32-36); Mean Corpuscular Hemoglobin 30.9 pg (26-34); Mean Corpuscular Volume 97.5 fl (80-100); Platelet Count Result 129 k/mm3 (150-375); Red Blood Count 3.62 M/mm3 (4.6-6.20); White Blood Count 5.5 K/mm3 (4.5-10.0)
[2024-11-29 08:15] LABS: INR 1.0; Prothrombin Time 13.2 Seconds (11.1-14.7)
[2024-11-29 08:25] LABS: Alanine Aminotransferase 35 U/L (6-50); Albumin Level 4.4 g/dL (3.5-5.1); Alkaline Phosphatase 67 U/L (38-126); Anion Gap 9 mmol/L (4-12); Aspartate Amino Transferase 44 U/L (17-59); Bilirubin,Total 1.4 mg/dL (0.2-1.3); Blood Urea Nitrogen 39 mg/dL (9-20); Calcium 9.2 mg/dL (8.4-10.2); Carbon Dioxide 28 mmol/L (22-30); Chloride 99 mmol/L (98-107); Estimated Glomerular Filt Rate 54; Glucose 90 mg/dL (65-110); Potassium 4.6 mmol/L (3.4-5.0); Sodium 136 mmol/L (137-145); Total Protein 7.5 g/dL (6.3-8.2)
== END 2024-11-29 07:06 | disposition home or self-care (01) ==
PROVIDERS: PCP Nurse Practitioner Family; Visit Provider Internal Medicine Gastroenterology
DX: K76.6 Portal hypertension (principal); R18.8 Other ascites; K74.69 Other cirrhosis of liver
CPT/HCPCS: 36415; 76705; 80053; 85027; 85055; 85610